=== PATIENT | female | born 2000 | race Caucasian/White ===

== ENCOUNTER 2023-10-07 07:59 | Outpatient (AMB) | payer OTHER, SELFPAY ==
--- NOTE | 2023-10-07 08:12 | A.OFFVIS_ITS ---
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 States pain started on 09/09/23 she fainted and fell downstairs due to low iron, and injured her hand. Pain is worse with wrist movement, wrist rotation and has stiffness.She has tingling in her ring and pinky. She is currently wearing a wrist brace. 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 She currently states s he has improvement in her pain and ROM however she does experiences pain and limited ROM in her wrist which is aggravated with movement. She also c/o tingling in her ring and pinky finger. She is currently wearing a wrist brace. 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 Review of Systems Const All systems reviewed & are unremarkable except as noted in HPI and below Physical Exam Vital Signs: BMI result Body Mass Index 26.6 Const General: cooperative, healthy appearing, comfortable, no acute distress, well developed and alert Orientation/consciousness: patient oriented x3 HEENT Head: Yes normal to inspection, Yes normocephalic and Yes atraumatic Eyes General: appearance normal, both eyes and all related structures Resp Effort & Inspection: normal respiratory effort and able to speak in complete sentences Cardio Rate: regular rate Peripheral pulses: Peripheral pulses 2+ throughout GI Palpation (GI): Soft to palpation Skin Lesions: no lesions Rashes: no rashes Neuro General: patient oriented x3 Extrem Other: Left wrist: Normal to inspection. Tenderness over the dorsal aspect of the hand along the scapholunate region. No pain with compression of the wrist. No DRUJ instability. Numbness and tingling over the ulnar nerve distribution of the left hand. Able to make a full fist and fully extend all fingers. She had mild discomfort with supination and pronation of the wrist. Discomfort along the lateral epicondyle, full rom of the elbow. Results Reviewed Results Reviewed: Xrays were obtained in the office today and personally reviewed by me of the left wrist and elbow are negative for acute fractures or dislocations. Assessment & Plan Assessment & Plan (1) Left wrist tendonitis: Code(s): M77.8 - Other enthesopathies, not elsewhere classified (2) Ulnar neuropathy at elbow: Code(s): G56.20 - Lesion of ulnar nerve, unspecified upper limb Qualifiers: Laterality: left Qualified Code(s): G56.22 - Lesion of ulnar nerve, left upper limb Plan We discussed options which include OT, NSAIDs and injections. The patient will defer on the injection today and proceed with OT and NSAIDs.I also ordered an EMG of the left UE. She will continue with current work restrictions, no physical contact with clients and see me back in 6 weeks for f/u. Orders: Orders NE electromyogram (EMG) Today R20.0 - Anesthesia of skin, R20.2 - Paresthesia of skin NE nerve conduction velocity Today R20.0 - Anesthesia of skin, R20.2 - Paresthesia of skin XR elbow LT min 3V Today M25.522 - Pain in left elbow OT Evaluation and Treatment Today G56.20 - Lesion of ulnar nerve, unspecified upper limb, M77.8 - Other enthesopathies, not elsewhere classified Patient Instructions: Scribed for Savannah Marti PA-C, by Lavon Sprague medical anthropologist, on 10/07/2023 at 8:00 AM EST. I, Savannah Marti PA-C, have personally reviewed and agree with the information entered by the scribe. Coding Level of Care Code New Pt Level 3 (40961) Diagnoses Left wrist tendonitis M77.8 Ulnar neuropathy at elbow of left upper extremity G56.22 Laterality: left
[2023-10-07 08:19] VITALS: BMI 26.6
== END 2023-10-07 09:00 | disposition home or self-care (01) ==
PROVIDERS: Visit Provider Physician Assistant
DX: M77.8 Other enthesopathies, not elsewhere classified (principal); G56.22 Lesion of ulnar nerve, left upper limb; W10.8XXA Fall (on) (from) other stairs and steps, initial encounter
CPT/HCPCS: 99203

== ENCOUNTER 2023-10-07 08:33 | Outpatient (REF) | payer OTHER, SELFPAY ==
--- NOTE | ~2023-10-07 | XR_ITS ---
EXAMINATION: XR ELBOW, LEFT CLINICAL INFORMATION: Pain. COMPARISON: None available. TECHNIQUE: AP, lateral, and oblique views of the left elbow. FINDINGS: The bones and soft tissues are normal. No fracture or joint effusion. Alignment is anatomic. Joint spaces are maintained. XR/XR wrist LT w scaphoid IMPRESSION: Normal left elbow. EXAMINATION: XR WRIST, LEFT CLINICAL INFORMATION: Pain. COMPARISON: None available. TECHNIQUE: PA, lateral, and oblique views of the left wrist are submitted, together with a bilateral scaphoid view. FINDINGS: The bones and soft tissues are normal. No fracture. Alignment is anatomic with normal joint spaces. There is a mild ulnar positive variance noted bilaterally. No erosions or abnormal soft tissue calcifications. IMPRESSION: Normal left wrist.
--- NOTE | ~2023-10-07 | XR_ITS ---
EXAMINATION: XR ELBOW, LEFT CLINICAL INFORMATION: Pain. COMPARISON: None available. TECHNIQUE: AP, lateral, and oblique views of the left elbow. FINDINGS: The bones and soft tissues are normal. No fracture or joint effusion. Alignment is anatomic. Joint spaces are maintained. XR/XR elbow LT min 3V IMPRESSION: Normal left elbow. EXAMINATION: XR WRIST, LEFT CLINICAL INFORMATION: Pain. COMPARISON: None available. TECHNIQUE: PA, lateral, and oblique views of the left wrist are submitted, together with a bilateral scaphoid view. FINDINGS: The bones and soft tissues are normal. No fracture. Alignment is anatomic with normal joint spaces. There is a mild ulnar positive variance noted bilaterally. No erosions or abnormal soft tissue calcifications. IMPRESSION: Normal left wrist.
== END 2023-10-07 08:34 | disposition home or self-care (01) ==
LOC: HO.HOSX 08:33
PROVIDERS: Visit Provider Physician Assistant
DX: M25.522 Pain in left elbow (principal); M25.532 Pain in left wrist; M77.8 Other enthesopathies, not elsewhere classified; G56.22 Lesion of ulnar nerve, left upper limb; R20.0 Anesthesia of skin; R20.2 Paresthesia of skin; Z79.899 Other long term (current) drug therapy
CPT/HCPCS: 73080; 73110; 99202

== ENCOUNTER 2023-10-27 13:15 | Outpatient (AMB) | payer OTHER, SELFPAY ==
--- NOTE | 2023-10-18 08:46 | A.OFFPC_ITS ---
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
[2023-10-27 13:30] VITALS: BP 104/68; PULSE 60; RESP 12; O2SAT 98; BMI 32.8
== END 2023-10-27 14:17 | disposition home or self-care (01) ==
PROVIDERS: Visit Provider Physician Assistant
DX: Z00.00 Encounter for general adult medical examination without abnormal findings (principal); F31.77 Bipolar disorder, in partial remission, most recent episode mixed; D50.0 Iron deficiency anemia secondary to blood loss (chronic); N92.1 Excessive and frequent menstruation with irregular cycle; F41.1 Generalized anxiety disorder; F41.0 Panic disorder [episodic paroxysmal anxiety]; F43.10 Post-traumatic stress disorder, unspecified
CPT/HCPCS: 99385

== ENCOUNTER 2023-11-04 09:39 | Outpatient (REF) | payer OTHER, SELFPAY ==
--- NOTE | 2023-11-04 09:46 | EMG_ITS ---
Chief complaint: Left elbow pain with numbness on 4th and 5th digits, since fall last September 2023 Reason for referral: Evaluate for ulnar neuropathy Referred by: Savannah JORDAN Procedure done: Left upper extremity NCS/EMG Precautions and/or limitations: None The limb temperature was monitored continuously and remained between 32-36 degrees C during the performance of the NCS. Ulnar motor NCS was performed with moderate elbow flexion between 70-90 degrees, with across-elbow distance of 10 cm. Nerve Conduction Studies Anti Sensory Summary Table ?Stim Site NR Onset (ms) Norm Onset (ms) Peak (ms) Norm Peak (ms) O-P Amp (?V) Norm O-P Amp Site1 Site2 Delta-0 (ms) Dist (cm) Sunil (m/s) Norm Sunil (m/s) Left Median Anti Sensory (2nd Digit) Wrist ? 2.3 2.9 <3.6 72.0 >10 Wrist 2nd Digit 2.3 14.0 61 Left Radial Anti Sensory (Thumb) Forearm ? 1.3 2.0 <3.1 30.9 Forearm Thumb 1.3 0.0 Left Ulnar Anti Sensory (5th Digit) Wrist ? 2.4 2.9 <3.7 36.6 >15.0 Wrist 5th Digit 2.4 14.0 58 Motor Summary Table ?Stim Site NR Onset (ms) Norm Onset (ms) O-P Amp (mV) Norm O-P Amp iAmp (mV) Amp (1st) (%) Site1 Site2 Delta-0 (ms) Dist (cm) Sunil (m/s) Norm Sunil (m/s) Left Median Motor (Abd Poll Brev) Wrist ? 2.7 <3.9 12.4 >4.5 14.3 100.0 Elbow Wrist 3.4 20.0 59 >45 Elbow ? 6.1 11.6 13.5 93.5 Left Ulnar Motor (Abd Dig Minimi) Wrist ? 2.3 <3.0 9.0 >5 10.9 100.0 B Elbow Wrist 3.2 18.0 56 >45 B Elbow ? 5.5 8.9 11.0 98.9 A Elbow B Elbow 1.7 10.0 59 >45 A Elbow ? 7.2 7.1 8.0 78.9 Left Ulnar Motor (FDI) Wrist ? 2.8 <3.0 7.9 >5 9.1 100.0 B Elbow Wrist 3.3 19.0 58 >45 B Elbow ? 6.1 7.8 9.1 98.7 A Elbow B Elbow 1.6 10.0 62 >45 A Elbow ? 7.7 1.1 1.3 13.9 EMG ?Side Muscle Nerve Root Ins Act Fibs Psw Amp Dur Poly Recrt Int Pat Comment Left 1stDorInt Ulnar C8-T1 Incr 1+ 1+ Nml Nml 0 Nml Complete Left Biceps Musculocut C5-6 Nml Nml Nml Nml Nml 0 Nml Complete Left Triceps Radial C6-7-8 Nml Nml Nml Nml Nml 0 Nml Complete Left Deltoid Axillary C5-6 Nml Nml Nml Nml Nml 0 Nml Complete Left FlexCarpiUln Ulnar C8,T1 Nml Nml Nml Nml Nml 0 Nml Complete Paraspinal EMG ?Side Muscle Nerve Root Ins Act Fibs Psw Comment Left Cervical Upper Rami Nml Nml Nml Left Cervical Mid Rami Nml Nml Nml Left Cervical Lower Rami Nml Nml Nml FINDINGS: Left ulnar motor nerve, recording ADM, showed normal distal latency, drop in amplitude above the elbow, but normal conduction velocity. Confirmed by retesting ulnar motor nerve, recording FDI, still showing drop in amplitude above the elbow, but normal conduction velocity. All other nerves tested were within normal. Concentric needle EMG was performed in selected muscles of the left upper extremity and cervical paraspinals. Study revealed signs of electric abnormalities as shown in the table below. Left FDI showed increased insertional activity, PSWs and fibrillations. IMPRESSION: 1. This is an abnormal study. 2. There is electrodiagnostic evidence for left ulnar neuropathy at the elbow. 3. There is no electrodiagnostic evidence for median neuropathy, brachial plexopathy, or cervical radiculopathy. Thank you for your kind referral. Lili Lo MD, JEFFREY Board Certified, [place] [employer] and [employer] (ABPMR) Board Certified, [place] Board of Electrodiagnostic Medicine (ABEM) CODIN [id number] [facility]
== END 2023-11-04 09:40 | disposition home or self-care (01) ==
LOC: HO.NEURO 09:39
PROVIDERS: Visit Provider Physician Assistant
DX: R20.0 Anesthesia of skin (principal); R20.2 Paresthesia of skin
CPT/HCPCS: 95886; 95909

== ENCOUNTER → 2023-11-04 09:46 | Outpatient (BNV) | payer OTHER, SELFPAY | PROVIDERS: Visit Provider Physical Medicine & Rehabilitation | DX: G56.22 Lesion of ulnar nerve, left upper limb (principal) | CPT/HCPCS: 95886; 95909 ==

== ENCOUNTER 2023-11-16 14:01 | Outpatient (REF) | payer OTHER, SELFPAY ==
[2023-11-17 11:57] LABS: CT PCR NOT DETECTED (Not Detect.); NG PCR NOT DETECTED (Not Detect.)
[2023-11-17 12:03] LABS: BV Int Neg Control Negative (Negative); BV Int Pos Control Positive (Positive)
== END 2023-11-16 14:02 | disposition home or self-care (01) ==
LOC: HO.LNP 14:01
PROVIDERS: Visit Provider Advanced Practice Midwife
DX: N94.10 Unspecified dyspareunia (principal); F43.10 Post-traumatic stress disorder, unspecified; N92.1 Excessive and frequent menstruation with irregular cycle; D50.0 Iron deficiency anemia secondary to blood loss (chronic); Z80.41 Family history of malignant neoplasm of ovary; Z80.3 Family history of malignant neoplasm of breast; Z97.5 Presence of (intrauterine) contraceptive device; Z86.69 Personal history of other diseases of the nervous system and sense organs
CPT/HCPCS: 0353U; 87480; 87510; 87660; 99202

== ENCOUNTER 2023-11-16 14:01 | Outpatient (AMB) | payer OTHER, SELFPAY ==
[2023-11-16 14:03] VITALS: BP 90/52; BMI 33.6
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
== END 2023-11-16 14:58 | disposition home or self-care (01) ==
PROVIDERS: Visit Provider Advanced Practice Midwife
DX: F43.10 Post-traumatic stress disorder, unspecified (principal); Z80.3 Family history of malignant neoplasm of breast; N92.1 Excessive and frequent menstruation with irregular cycle; Z97.5 Presence of (intrauterine) contraceptive device; Z86.69 Personal history of other diseases of the nervous system and sense organs; Z80.41 Family history of malignant neoplasm of ovary; D50.0 Iron deficiency anemia secondary to blood loss (chronic)
CPT/HCPCS: 99204

== ENCOUNTER 2023-11-17 09:17 | Outpatient (REF) | payer OTHER, SELFPAY ==
[2023-11-17 11:42] LABS: MANUAL DIFF FLAG NO
[2023-11-17 11:47] LABS: Basophils Percent Auto 0.9 % (0-2); Eosinophils Percent Auto 0.7 % (0-4); Hematocrit 42.6 % (37.0-47.0); Hemoglobin 14.2 g/dl (12.0-16.0); Imm Gran Abs Auto 0.02 X10*3/uL (0.00-0.03); Imm Gran Pct Auto 0.5 % (0.0-0.4); Lymphocytes Absolute Auto 0.9 X10*3/uL (1.2-4.9); Lymphocytes Percent Auto 20.6 % (20-40); Mean Corpuscular HGB Conc 33.3 g/dl (31.0-35.0); Mean Corpuscular Hemoglobin 28.3 pg (27.0-33.0); Mean Platelet Volume 10.7 fL (9.4-12.3); Monocytes Absolute Auto 0.4 X10*3/uL (0.1-1.2); Monocytes Percent Auto 8.3 % (2-11); Neutrophils Absolute Auto 2.9 x10*3/uL (2.0-8.3); Platelet Count 182 X10*3/uL (160-400); Red Blood Count 5.01 X10*6/uL (4.20-5.50); White Blood Count 4.2 X10*3/uL (4.8-10.8)
[2023-11-17 12:29] LABS: Alanine Aminotransferase 21 U/L (0-31); Albumin Level 4.7 g/dL (3.5-5.0); Alkaline Phosphatase 40 U/L (39-117); Anion Gap 16 (12-20); Aspartate Amino Transferase 20 U/L (5-31); Bilirubin Total 0.5 mg/dL (0.0-1.0); Blood Urea Nitrogen 15 mg/dL (9-16); Calcium 9.6 mg/dL (8.4-10.2); Carbon Dioxide 21 mmol/L (22-29); Chloride 108 mmol/L (96-108); Cholesterol 166 mg/dL (<200); Estimated Glomerular Filt Rate > 60; Glucose Fasting 84 mg/dL (60-99); HDL Cholesterol 54 mg/dL (>40); Iron 100 mcg/dL (30-160); LDL Cholesterol Calculated 104 mg/dL (<100); Percent Iron Saturation 33 % (15-50); Potassium 4.4 mmol/L (3.3-5.1); Sodium 141 mmol/L (135-145); Total Iron Binding Capacity 306 mcg/dL (228-428); Total Protein 7.7 g/dL (6.5-8.0); Triglycerides 40 mg/dL (<150); Unsaturated Iron Binding 206 ug/dL
[2023-11-17 12:48] LABS: Ferritin 68 ng/mL (10-122)
[2023-11-17 12:54] LABS: Folate 10.6 ng/mL (> or = 4.0); Vitamin B12 392 pg/mL (200-900)
== END 2023-11-17 09:18 | disposition home or self-care (01) ==
LOC: HO.HHCL 09:17
PROVIDERS: Visit Provider Physician Assistant
DX: Z00.00 Encounter for general adult medical examination without abnormal findings (principal); D50.9 Iron deficiency anemia, unspecified; F31.70 Bipolar disorder, currently in remission, most recent episode unspecified; F32.4 Major depressive disorder, single episode, in partial remission; F41.1 Generalized anxiety disorder; F41.0 Panic disorder [episodic paroxysmal anxiety]
CPT/HCPCS: 36415; 80053; 80061; 82607; 82728; 82746; 83540; 84443; 85025

== ENCOUNTER 2023-11-17 15:18 | Outpatient (AMB) | payer OTHER, SELFPAY ==
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
[2023-11-17 15:42] VITALS: BP 128/72; PULSE 72; RESP 16; O2SAT 72; BMI 34.2
== END 2023-11-17 16:13 | disposition home or self-care (01) ==
PROVIDERS: Visit Provider Physician Assistant
DX: N92.1 Excessive and frequent menstruation with irregular cycle (principal); B37.31 Acute candidiasis of vulva and vagina
CPT/HCPCS: 99213; G2211

== ENCOUNTER 2023-11-18 08:30 | Outpatient (AMB) | payer OTHER, SELFPAY ==
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
== END 2023-11-18 09:11 | disposition home or self-care (01) ==
PROVIDERS: Visit Provider Physician Assistant
DX: G56.22 Lesion of ulnar nerve, left upper limb (principal)
CPT/HCPCS: 99214

== ENCOUNTER → 2023-11-18 08:30 | Outpatient (BNVA) | payer OTHER, SELFPAY | PROVIDERS: Visit Provider Physician Assistant | DX: G56.22 Lesion of ulnar nerve, left upper limb (principal) | CPT/HCPCS: 99212 ==

== ENCOUNTER 2023-12-15 12:24 | Outpatient (AMB) | payer OTHER, SELFPAY ==
[2023-12-15 12:50] VITALS: BP 130/70; PULSE 77; TEMP 36.6; O2SAT 97; BMI 35.2
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
== END 2023-12-15 13:20 | disposition home or self-care (01) ==
PROVIDERS: PCP Physician Assistant; Visit Provider Nurse Practitioner Family
DX: G56.22 Lesion of ulnar nerve, left upper limb (principal)
CPT/HCPCS: 99213

== ENCOUNTER 2023-12-28 08:58 | Outpatient (AMB) | payer OTHER, SELFPAY ==
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
[2023-12-28 09:01] VITALS: BMI 31.8
== END 2023-12-28 09:36 | disposition home or self-care (01) ==
PROVIDERS: Visit Provider Orthopaedic Surgery
DX: G56.22 Lesion of ulnar nerve, left upper limb (principal); D50.0 Iron deficiency anemia secondary to blood loss (chronic); F31.77 Bipolar disorder, in partial remission, most recent episode mixed; F41.1 Generalized anxiety disorder; F41.0 Panic disorder [episodic paroxysmal anxiety]
CPT/HCPCS: 99204

== ENCOUNTER → 2023-12-28 08:58 | Outpatient (BNVA) | payer OTHER, SELFPAY | PROVIDERS: Visit Provider Orthopaedic Surgery | DX: G56.22 Lesion of ulnar nerve, left upper limb (principal); D50.0 Iron deficiency anemia secondary to blood loss (chronic); F31.77 Bipolar disorder, in partial remission, most recent episode mixed; F41.1 Generalized anxiety disorder; F41.0 Panic disorder [episodic paroxysmal anxiety] | CPT/HCPCS: 99202 ==

== ENCOUNTER 2024-02-08 11:18 | Outpatient (AMB) | payer OTHER, SELFPAY ==
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
== END 2024-02-08 11:54 | disposition home or self-care (01) ==
PROVIDERS: Visit Provider Orthopaedic Surgery
DX: G56.22 Lesion of ulnar nerve, left upper limb (principal); D50.0 Iron deficiency anemia secondary to blood loss (chronic); F31.77 Bipolar disorder, in partial remission, most recent episode mixed; F41.1 Generalized anxiety disorder; F41.0 Panic disorder [episodic paroxysmal anxiety]
CPT/HCPCS: 99024

== ENCOUNTER → 2024-02-08 11:18 | Outpatient (BNVA) | payer OTHER, SELFPAY | PROVIDERS: Visit Provider Orthopaedic Surgery | DX: G56.22 Lesion of ulnar nerve, left upper limb (principal); D50.0 Iron deficiency anemia secondary to blood loss (chronic); F31.77 Bipolar disorder, in partial remission, most recent episode mixed; F41.1 Generalized anxiety disorder; F41.0 Panic disorder [episodic paroxysmal anxiety] | CPT/HCPCS: 99212 ==

== ENCOUNTER 2024-02-13 06:00 | Day surgery (SDC) | payer OTHER, SELFPAY ==
[2024-02-09 14:20] VITALS: BMI 34.2
[2024-02-13] VITALS (7 sets, daily range): BP systolic 120–140; BP diastolic 59–78; PULSE 79–126; RESP 16–20; TEMP 36.1–37.2; O2SAT 94–98
[2024-02-13 06:35] LABS: UPreg QC Valid YES; Urine Pregnancy NEGATIVE (NEGATIVE)
[2024-02-13] MEDS: Lactated Ringers 1,000 ML 50 ML IVCONT (06:37)
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
--- NOTE | 2024-02-13 07:36 | P.OP_ITS ---
Operative Note Operative Note Date of Service: 02/13/24 Narrative: Operative Note Narrative: Preop diagnosis: 1. Left Cubital tunnel syndrome Postop diagnosis: Same Procedure: 1. Left Cubital Tunnel Release Surgeon: Rosie Quinn MD Vocational Nursing Instructor: None Anesthesia: General Anesthesia Findings: Thickening and fibrosis about the ulnar nerve at the cubital tunnel, with an hourglass deformity seen in the ulnar nerve within the cubital tunnel. Implants: none Tourniquet time: 26 minutes EBL: 5.0 ml Specimen: none Drains: None Complications: None Disposition: Brought to the recovery room in stable condition Plan: Follow-up in 10-14 days for wound check, and suture removal Indications: The patient is 23 years old with left cubital tunnel syndrome . The risks and benefits of operative treatment, including but not limited to risk of damage to blood vessels, nerves, tendons, infection, recurrence, persistent pain or numbness, incomplete resolution of preoperative symptoms, or need for further surgery were discussed with the patient and they wished to proceed with surgery. Procedure: Once consent was obtained patient was brought back to the operating suite and placed in the operating table in a supine position. Perioperative a ntibiotics and anesthesia was administered by the anesthesia team. The limb was prepped and draped in a standard surgical fashion, and a sterile tourniquet applied to the proximal aspect of the left upper extremity. The limb was elevated exsanguinated with Esmarch bandage and the tourniquet inflated to 250 mm of mercury for a total tourniquet time of 26 minutes. A 6 cm gently curved but longitudinally oriented incision was made centered over the cubital tunnel of the left upper extremity. Incision was made through the skin to the subcutaneous tissues using a # 15 Blade. I then dissected down to the level of the medial epicondyle and the cubital tunnel using tenotomy scissors. Care was taken to protect the medial antebrachial cutaneous nerve. The ulnar nerve was identified just posterior to the medial intermuscular septum. The ulnar nerve was released in a proximal to distal direction using tenotomy in iris scissors while directly visualizing and protecting the ulnar nerve. Thickening and fibrosis was appreciated about the ulnar nerve as it passed through the cubital tunnel. The ulnar nerve was assessed as I passed the elbow through full flexion and extension and was found to remain stable within its groove. At this point the tourniquet was deflated and hemostasis obtained with a brief period of local pressure and bipolar electrocautery. The wound was copiously irrigated with normal saline. The subcutaneous layer was closed with 4-0 Vicryl suture, and the skin edges were reapproximated with a running 4-0 Monocryl subcuticular closure. Steri-Strips and Mastisol were applied.. The wound was infiltrated with some 0.25% plain Marcaine for postop pain control and sterile dressings and a posterior splint was applied. The patient appears to have tolerated the procedure well and with no complications. All digits were well vascularized at the conclusion of the case.
--- NOTE | 2024-02-13 07:36 | MHC.SHP ---
Pre-Procedural Eval Section A - 24 Hr Update-Section A only Date of Service: 02/13/24 The patient is an INPATIENT: No Changes since office visit: No Cold of Flu in the past 2 weeks, No New Medical Problems, No Changes in Medication and No Patient answered all questions The patient has been examined within 24 hours of the surgical procedure. The History & Physical has been completed within 30 days and I have reviewed it.: Yes Section B - Complete if H&P > 30 days Chief Complaint: Lesion of ulnar nerve, left upper limb Allergies: Allergies Allergy/AdvReac Type Severity Reaction Status Date / Time amoxicillin Allergy Intermediate Diarrhea Verified 02/08/24 11:42 Plan I have reviewed the history and physical and performed a pertinent physical examination on my patient. No changes have occurred unless specified. Time Spent With Patient Time: Total time managing care of this patient today ____ minutes.
== END 2024-02-13 10:37 | disposition home or self-care (01) ==
PROVIDERS: Anesthesiology; PCP Physician Assistant; Visit Provider Orthopaedic Surgery
PROC: (CPT 64718; principal; 2024-02-13 07:30)
DX: G56.22 Lesion of ulnar nerve, left upper limb (principal); R20.0 Anesthesia of skin; D50.9 Iron deficiency anemia, unspecified; F31.77 Bipolar disorder, in partial remission, most recent episode mixed; F41.1 Generalized anxiety disorder; F41.0 Panic disorder [episodic paroxysmal anxiety]; F43.10 Post-traumatic stress disorder, unspecified; Z62.810 Personal history of physical and sexual abuse in childhood; Z79.899 Other long term (current) drug therapy; Z88.1 Allergy status to other antibiotic agents; Z80.3 Family history of malignant neoplasm of breast; Z80.41 Family history of malignant neoplasm of ovary
CPT/HCPCS: 64718; 81025; J0131; J0690; J1100; J1885; J2250; J2371; J2405; J2704; J3010

== ENCOUNTER → 2024-02-13 06:00 | Outpatient (BNV) | payer OTHER, SELFPAY | PROVIDERS: PCP Physician Assistant; Visit Provider Orthopaedic Surgery | DX: G56.22 Lesion of ulnar nerve, left upper limb (principal) | CPT/HCPCS: 64718 ==

== ENCOUNTER 2024-02-28 12:24 | Outpatient (AMB) | payer OTHER, SELFPAY ==
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
== END 2024-02-28 13:41 | disposition home or self-care (01) ==
PROVIDERS: Visit Provider Orthopaedic Surgery
DX: G56.22 Lesion of ulnar nerve, left upper limb (principal); D50.0 Iron deficiency anemia secondary to blood loss (chronic); F31.77 Bipolar disorder, in partial remission, most recent episode mixed; F41.1 Generalized anxiety disorder; F41.0 Panic disorder [episodic paroxysmal anxiety]
CPT/HCPCS: 99024

== ENCOUNTER → 2024-02-28 12:24 | Outpatient (BNVA) | payer OTHER, SELFPAY | PROVIDERS: Visit Provider Orthopaedic Surgery | DX: G56.22 Lesion of ulnar nerve, left upper limb (principal); D50.0 Iron deficiency anemia secondary to blood loss (chronic); F31.77 Bipolar disorder, in partial remission, most recent episode mixed; F41.1 Generalized anxiety disorder; F41.0 Panic disorder [episodic paroxysmal anxiety] | CPT/HCPCS: 99212 ==

== ENCOUNTER 2024-03-01 14:51 | Outpatient (AMB) | payer OTHER, SELFPAY ==
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
[2024-03-01 15:01] VITALS: BP 106/60; PULSE 86; TEMP 36.8; O2SAT 98; BMI 28.0
== END 2024-03-01 15:24 | disposition home or self-care (01) ==
PROVIDERS: PCP Physician Assistant; Visit Provider Physician Assistant
DX: L20.89 Other atopic dermatitis (principal)
CPT/HCPCS: 99213

== ENCOUNTER 2024-05-21 10:36 | Outpatient (AMB) | payer OTHER, SELFPAY ==
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
[2024-05-21 10:50] VITALS: BP 100/64; PULSE 78; RESP 16; TEMP 37; O2SAT 95; BMI 36.3
== END 2024-05-21 11:04 | disposition home or self-care (01) ==
PROVIDERS: PCP Physician Assistant; Visit Provider Physician Assistant
DX: S06.0X0A Concussion without loss of consciousness, initial encounter (principal); W22.8XXA Striking against or struck by other objects, initial encounter; Z04.2 Encounter for examination and observation following work accident

== ENCOUNTER → 2024-05-21 10:36 | Outpatient (BNVA) | payer OTHER, SELFPAY | PROVIDERS: PCP Physician Assistant; Visit Provider Physician Assistant | DX: F07.81 Postconcussional syndrome (principal) | CPT/HCPCS: 99212 ==

== ENCOUNTER 2024-05-30 11:09 | Outpatient (AMB) | payer OTHER, SELFPAY ==
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
[2024-05-30 11:19] VITALS: BP 108/58; PULSE 84; O2SAT 99; BMI 36.4
== END 2024-05-30 14:00 | disposition home or self-care (01) ==
LOC: HO.HMCFM 11:09
PROVIDERS: PCP Physician Assistant; Visit Provider Physician Assistant
DX: S06.0XAA Concussion with loss of consciousness status unknown, initial encounter (principal); Z23 Encounter for immunization

== ENCOUNTER → 2024-05-30 11:09 | Outpatient (BNVA) | payer OTHER, SELFPAY | PROVIDERS: PCP Physician Assistant; Visit Provider Physician Assistant | DX: Z23 Encounter for immunization (principal); F07.81 Postconcussional syndrome | CPT/HCPCS: 90471; 90656; 99212 ==

== ENCOUNTER 2024-07-30 15:32 | Outpatient (REF) | payer OTHER, SELFPAY ==
--- OUTSIDE RECORDS SUMMARY | 2024-07-30 18:47 | XMS_ITS | Data Portability ---
Author Organization NIKKI Ndiaye s, [address] Address [address] [place] [address] Assessment No assessment recorded. Plan of Treatment Reminders Order Date Submit Date Provider Last Modified By Organization Details Last Modified Time Details Appointments None recorded. Lab rapid SARS CoV 2 Ag, QL IA, respiratory specimen 2022 023 [email or web address] 5 [facility], [address] [place] [address], [phone], 3 16:27:48 rapid flu (A+B) 2022 023 [email or web address] 5 _[facility], [address] [place] [address], [phone], 3 16:27:48 rapid strep group A, throat 2022 023 [email or web address] 5 _[facility], [address] [place] [address], [phone], 3 16:27:48 streptococc us group A, culture, throat 2022 023 MONTROSE [facility], [address] [place] [address], [place], [address], 3 08:07:54 Referral None recorded. Procedures None recorded. Surgeries None recorded. Imaging XR, hand, 3 or more view 2022 023 CITLALLI [facility], [address] [place] [address]., [place], [address], 16:31:35 Medication Orders acetaminoph en 325 mg tablet 2022 023 [email or web address] 1 Not available 14:24:36 amoxicillin 500 mg capsule 2022 023 [email or web address] 1 [id number], [address] [facility], [place], [address], 14:24:39 Patient TargetsNo targets recorded. Patient Instructions Encounter Date Encounter Id Patient Instructions Last Modified By Organization Details Last Modified Time 11/03/2022 [id number] cough: care instructions [email or web address] Not available 11/03/2022 16:28:31 sore throat: car e instructions [email or web address] Not available 11/03/2022 16:27:48 strep throat: care instructions Not available 11/03/2022 16:28:31 Rest. Drink plenty of fluids. Gargle with warm salty water several times daily. Take the antibiotic as prescribed. Obtain a new toothbrush in 2 days. See printed instructions and work note. You will be contacted when your throat culture report returns. Follow-up with your doctor if no improvement in a few days. Seek Emergency Medical evaluation for any worsening symptoms, particularly for any worsening pain, trouble swallowing or breathing, intractable vomiting, blood in vomit or stool. [email or web address] Not available 11/03/2022 16:32:30 Reason for Referral None Reported. Results Created Date Observation Date Name Description Value Unit Range Abnormal Flag Note LastModifiedBy Organization Detail LastModifiedTime 11/04/1911/06/2022 BETA STREP GP A CULTU RE beta strep gp A culture NEGATI VE Refer ence Range : Negat hal Not Available [facility] ([facility]) [address] [facility], [place], [address], 11/06/2022 08:07:54 11/04/1911/03/2022 rapid SARS CoV 2 Ag, QL IA, respi rator y speci men Unknown Analyte Normal =Negat hal Not Available [facility] [place], [address], 11/03/2022 15:56:12 11/04/19 23 11/03/2022 rapid SARS CoV 2 Ag, QL IA, respi rator y speci men Unknown Analyte negati ve Not Available [address] [place] [address], [place], [address], 11/03/2022 15:56:12 11/04/19 23 11/03/2022 rapid flu (A+B) Unknown Analyte Normal = Negati ve Not Available [address] [place] [address], [place], [address], 11/03/2022 15:56:13 11/04/19 23 11/03/2022 rapid flu (A+B) Unknown Analyte Normal = Negati ve Not Available [address] [place] [address], [address], 11/03/2022 15:56:13 11/04/19 23 11/03/2022 rapid flu (A+B) Unknown Analyte negati ve Not Available [address] [place] [address], [place], [address], 11/03/2022 15:56:13 11/04/19 23 11/03/2022 rapid flu (A+B) Unknown Analyte negati ve Not Available [address] [place] [address], [place], [address], 11/03/2022 15:56:13 11/04/19 23 11/03/2022 rapid strep group A, throa t Unknown Analyte Normal = Negati ve Not Available [address] [place] [address], [place], [address], 11/03/2022 15:40:46 11/04/19 23 11/03/2022 rapid strep group A, throa t Unknown Analyte negati ve Not Available [address] [facility], [place], [address], 11/03/2022 15:40:46 01/05/20 23 01/04/2023 XR, hand, 3 or more view No observ ation record ed. [email or web address] [facility] [address] [place], [address], 01/04/2023 17:26:47 Result Notes None recorded. Problems Name Problem SNOMED Code Status Onset Date Resolution Date Notes Provider Name and Address Organization Details Recorded Time Anxiety 31332243 Active 023 Trinamonster avalos, [place] - [facility] 3 15:19:20 Depressive disorder 59182013 Active 023 Trin[place]ster avalos, PA - [facility] 3 15:19:25 Problem Notes None recorded. Procedures Surgical History None recorded. Imaging Results Imaging Date Name Status LastModified by Organiz ation Details LastModified Time 01/04/2023 XR, hand, 3 or more view completed [email or web address] [address] [place], [address], 01/04/2023 17:26:47 Procedure Notes None recorded. Medical Equipment None Reported. Allergies Allergen ID Allergen Name Allergen Category Reaction Reaction Severity Criticality Documentation Date Start Date Code Code System Note Provider Name and Address Organization Details Recorded Time 928299 amoxicill in medicatio n Not available Not available Not available 01/04/2023 723 RxNorm FAIZA avalos, PA - [facility] 3 14:24:02 Medications Name Sig Start Date Stop Date Status Note LastModified by Organization Details LastModified Time amoxicillin 500 mg capsule TAKE 1 CAPSULE BY MOUTH TWICE A DAY FOR 10 DAYS 01/04 completed Not Available Not Available Not Available acetaminoph en 325 mg tablet Take 3 tablets by oral route. 01/04 completed Not Available Not Available Not Available trazodone 50 mg tablet TAKE 1 TO 2 TABLETS BY MOUTH AT BEDTIME active Not Available Not Available No t Available fluconazole 150 mg tablet TAKE 1 TABLET BY MOUTH ONCE 01/04 completed Not Available Not Available Not Available prednisone 20 mg tablet TAKE 3 TABLETS BY MOUTH EVERY DAY FOR 3 DAYS 01/04 completed Not Available Not Available Not Available Vitamin D3 10 mcg (400 unit) tablet TAKE 1 TABLET BY MOUTH EVERY DAY active Not Available Not Available No t Available paroxetine 20 mg tablet TAKE 1 TABLET BY MOUTH EVERY DAY IN THE EVENING active Not Available Not Available No t Available hydroxyzine HCl 25 mg tablet TAKE 1 TABLET BY MOUTH 4 TIMES A DAY NEEDED FOR ANXIETY active Not Available Not Available No t Available epinephrine 0.3 mg/0.3 mL injection, auto-inject or INJECT 1 AUTO-INJE CTOR NEEDED active Not Available Not Available No t Available lamotrigine 100 mg tablet TAKE 1 AND 1/2 TABLET BY MOUTH EVERY DAY active Not Available Not Available No t Available hydroxyzine HCl 01/04 completed Not Available Not Available Not Available lamotrigine 01/04 completed Not Available Not Available Not Available trazodone 01/04 completed Not Available Not Available Not Available albuterol 90 mcg-budeson margie 80 mcg/actuati on HFA aerosol inhaler Inhale by inhalatio n route. active Not Available Not Available No t Available Vitals Date Recorded Body height Provider Name an d Address Organization Details Last Updated DateTime 11/03/2022 162.56 cm Trina Manoj PA - [facility] 0 11/03/2022 15:18:20 Date Recorded Body mass index (BMI) Body weight Provider Name and Address Organization Details Last Updated DateTime 11/03/2022 24.9 kg/m2 73972.89 g Trina Manoj PA - [facility] 11/03/2022 15:18:23 Date Recorded Oxygen saturation Oxygen saturation in Arterial blood by Pulse oximetry Provider Name and Address Organization Details Last Updated DateTime 11/03/2022 100 % 100 % Trina Alhambra PA - [facility] 11/03/2022 15:20:56 Date Recorded Pain severity - 0-10 verbal numeric rating [Score] - Reported Provider Name and Address Organization Details Last Updated DateTime 11/03/2022 10 Trina Manoj PA - [facility] 0 11/03/2022 15:21:19 Date Recorded Heart rate Provider Name an d Address Organization Details Last Updated DateTime 11/03/2022 91 /min Trina Manoj PA - [facility] 0 11/03/2022 15:21:06 Date Recorded Respiratory rate Provider Name a nd Address Organization Details Last Updated DateTime 11/03/2022 20 /min Trina Manoj PA - [facility] 0 11/03/2022 15:21:09 Date Recorded Body temperature Provider Name a nd Address Organization Details Last Updated DateTime 11/03/2022 99.5 [degF] Trina Alhambra PA - [facility] 11/03/2022 15:21:16 Date Recorded Body height Provider Name an d Address Organization Details Last Updated DateTime 01/04/2023 162.56 cm FAIZA MONTOYA PA - [facility] 01/04/2023 14:23:47 Date Recorded Body mass index (BMI) Body weight Provider Name and Address Organization Details Last Updated DateTime 01/04/2023 24.9 kg/m2 88244.89 g FAIZA MONTOYA [facility] - [facility] 01/04/2023 14:23:51 Date Recorded Body temperature Provider Name a nd Address Organization Details Last Updated DateTime 01/04/2023 97.7 [degF] FAIZA MONTOYA PA - [facility] 01/04/2023 14:26:24 Date Recorded Oxygen saturation Oxygen saturation in Arterial blood by Pulse oximetry Provider Name and Address Organization Details Last Updated DateTime 01/04/2023 98 % 98 % FAIZA MONTOYA PA - [facility] 01/04/2023 14:26:44 Date Recorded Heart rate Provider Name an d Address Organization Details Last Updated DateTime 01/04/2023 94 /min FAIZA MONTOYA PA - [facility] 01/04/2023 14:26:46 Date Recorded Respiratory rate Provider Name a nd Address Organization Details Last Updated DateTime 01/04/2023 18 /min FAIZA MONTOYA PA - [facility] 01/04/2023 14:26:48 Date Recorded Systolic blood pressure Diastolic blood pressure Provider Name and Address Organization Details Last Updated DateTime 11/03/2022 137 mm[Hg] 88 mm[Hg] Trina Aranda PA - [facility] 11/03/2022 15:20:53 Date Recorded Systolic blood pressure Diastolic blood pressure Provider Name and Address Organization Details Last Updated DateTime 01/04/2023 121 mm[Hg] 75 mm[Hg] FAIZA MONTOYA PA - [facility] 01/04/2023 14:26:43 Social History Question Answer Notes LastModified by Organizat ion Details LastModified Time Tobacco Smoking Status Never Smoker Trina avalos, PA - [facility] 11/03/2022 15:19:34 What Is Your Level Of Alcohol Consumption? 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 No Information not available 11/03/2022 Do You Use Any Illicit Or Recreational Drugs? No Information not available 11/03/2022 Have You Recently Traveled Abroad? No Information not available 11/03/2022 Do You Or Have You Ever Used Any Other Forms Of Tobacco Or Nicotine? No Information not available 11/03/2022 Sex: Unknown Functional Status None recorded. Mental Status None recorded. Family History Relationship Description Onset Age of this Age Resolved Age Notes LastModified by Organization Details LastModified Time Father No current problems or disability Not available 11/03 15:19:27 Mother No current problems or disability Not available 11/03 15:19:27 Medical History No medical history recorded. Gynecological HistoryNo gynecological history recorded. Obstetrics History GPAL:G 0 P 0 0 0 0 Immunizations Vaccine Type Date Status Note Provider Nam e and Address Organization Details Recorded Time HPV9 6 completed Trina avalos, PA - [facility] 11/03/2022 15:17:38 Influenza, MDCK, quadrivalent, PF 1 completed Trin[place]ster avalos, PA - [facility] 11/03/2022 15:17:38 COVID-19, mRNA, LNP-S, PF, 30 mcg/0.3 mL dose 1 completed Trina Manoj null, PA - [facility] 11/03/2022 15:17:39 COVID-19, mRNA, LNP-S, PF, 30 mcg/0.3 mL dose 1 completed Trina Alhambra null, PA - [facility] 11/03/2022 15:17:39 Hep A, ped/adol, 2 dose 7 completed Trina Alhambra null, PA - [facility] 11/03/2022 15:17:39 Hep A, ped/adol, 2 dose 8 completed Trina Manoj null, PA - [facility] 11/03/2022 15:17:39 meningococcal MCV4P 7 completed Trina Alhambra null, PA - [facility] 11/03/2022 15:17:39 Influenza, split virus, quadrivalent, PF 0 completed Trina Alhambra null, PA - [facility] 11/03/2022 15:17:39 Influenza, split virus, quadrivalent, PF 8 completed Trina Manoj null, PA - [facility] 11/03/2022 15:17:39 Influenza, split virus, quadrivalent, PF 9 completed Trina Manoj null, PA - [facility] 11/03/2022 15:17:39 Influenza, split virus, quadrivalent, PF 6 completed Trina Manoj null, PA - [facility] 11/03/2022 15:17:39 Past Encounters Encounter ID Performer Location Encounter Start Date Encounter Closed Date Diagnosis/Indication Diagnosis SNOMED-CT Code Diagnosis ICD10 Code Diagnosis [place] [id number] [place] [address] [address] 11/03/2022 10:29:21 11/03/2022 16:41:23 Acute pharyngitis 757537405 J02.9 Cough 23921268 R05.9 [id number] Ronnie Morgan MD [address] [place] [address] 01/04/2023 13:12:09 01/04/2023 15:37:03 Contusion of left hand [id number] 7819809 S60.222A No fractureYo ur x-ray will be reviewed by a radiologis t. You will be notified of any discrepanc ies between findings discussed at your visit today and the radiology interpreta tion.Rest, Ice and elevate Health Concerns Section Related Observation LastModified by Organization Detai ls LastModified Time None Recorded Concern Status LastModified by Organization Details LastModified Time None Recorded Advance Directives Directive None Recorded Payers Encounter Date Sequence Insurance Name Policy Number Policy Bynum Covered Member ID Bynum Member ID Guarantor Name 11/03/2022 1 [facility] HEALTH NET PLAN (MEDICAID HMO) [place]O Samreen Mccabe [id number] Samreen Mccabe 01/04/2023 AMMIR Mccabe Notes Date Note Type Note Provider Name and Address Organization Details Recorded Time 3 text/html Sore throatReported bypatient.Source of patient informationInformation obtained from patient; Patient arrived at Urgent Care ambulatory Location:throat Severity:moderate Quality:hurts to swallow Onset/Timin days Associated Symptoms:no shortness of breath; no wheezing; no sinus pain;sore throat;weakness;fever;coug juliano;nausea;abdominal pain Context:no sick contacts; non-smoker Modifying Factors:OTC medication no relief*Notes:22 year old female presenting for evaluation of fever, chills, sore throat, frontal headache, occasionally productive cough, epigastric pain with nausea and some vomiting and body aches getting worse for the past 2 days. No rash or stiff neck. No swollen glands or ear pain. No chest pain or shortness of breath. No blood in vomit or stool. No diarrhea. No sick contacts. She took ibuprofen early this morning without improvement. Sharmila Bellamy MD [address] [place], [address], [place] - [facility] 11/03/2022 16:34:02 3 text/html Wrist / Hand InjuryReported bypatient.Location:left Associated Symptoms:swelling;ecchymos is Severity:moderate Context:crush Aggravating Factors:lifting; carrying; gripping; ROM Previous InjuryNo prior injury to affected body part Ronnie Morgan MD [address] [facility] [place], [address], [place] - [facility] 01/04/2023 17:26:04 OBGyn Episode No OBEpisode recorded.
--- OUTSIDE RECORDS SUMMARY | 2024-07-30 18:47 | XMS_ITS ---
[facility] Name [facility] Organization Unknown History of Medication Use Medication Directions Dispensed Refills Start Date End Date Stat us NexplanonTakeNo date recordedNo form recordedNo frequency recordedNo route recordedNo set duration recordedNo set duration amount recordedactiveNo dosage strength recordedNo dosage strength units of measure recorded 09/11/2023 active hydrOXYzine HCLTakeN o date recordedNo form recordedNo frequency recordedNo route recordedNo set duration recordedNo set duration amount recordedactiveNo dosage strength recordedNo dosage strength units of measure recorded 09/11/2023 active LaMICtalTakeNo date recordedNo form recordedNo frequency recordedNo route recordedNo set duration recordedNo set duration amount recordedactiveNo dosage strength recordedNo dosage strength units of measure recorded 09/11/2023 active traZODoneTakeNo date recordedNo form recordedNo frequency recordedNo route recordedNo set duration recordedNo set duration amount recordedactiveNo dosage strength recordedNo dosage strength units of measure recorded 09/11/2023 active albuterol sulfateTak Sam date recordedNo form recordedNo frequency recordedNo route recordedNo set duration recordedNo set duration amount recordedactiveNo dosage strength recordedNo dosage strength units of measure recorded 09/11/2023 active Problems Problem Status Onset Date Problem Type Date of Resoluti on Source Pain in left wrist active 2023-09-09 [facility]Act [facility] Depression active ProblemAct [facility] Unspecified sprain of left wrist, initial encounter active 2023-09-09 [facility]Act [facility] Sleep disorder, unspecified active ProblemAct [facility] Anxiety disorder, unspecified active ProblemAct [facility]
[2024-07-31 07:11] LABS: HBsAGNum1 0.36 S/CO (0.00-0.99); Hepatitis B Surface Antigen Negative (Negative)
[2024-08-02 17:54] LABS: TS Negative Control Passed; TS Panel A 0; TS Panel B 0; TS Positive Control Passed; TSpotTB Negative (Negative)
== END 2024-07-30 15:33 | disposition home or self-care (01) ==
LOC: HO.WFDLDS 15:32
PROVIDERS: Visit Provider Physician Assistant
DX: Z28.39 Other underimmunization status (principal); Z11.1 Encounter for screening for respiratory tuberculosis
CPT/HCPCS: 36415; 86481; 87340

== ENCOUNTER 2024-09-17 12:31 | Outpatient (REF) | payer OTHER, SELFPAY ==
--- NOTE | ~2024-09-17 | XR_ITS ---
EXAMINATION: XR FOOT, LEFT CLINICAL INFORMATION: S99.922A - Unspecified injury of left foot, initial encounter ; patient dropped a weight on to left foot. COMPARISON: None available. TECHNIQUE: AP, lateral, and oblique views of the left foot. FINDINGS: No fracture, dislocation, or suspicious bone lesion. Normal bone mineralization. Normal alignment. Joint spaces are preserved. No significant arthropathy. Normal plantar arch. Mild dorsal soft tissue swelling of the forefoot. XR/XR foot LT min 3V IMPRESSION: No acute bony abnormalities left foot. Electronically signed by: Justice Pérez MD 09/17/2024 02:04 PM EDT
--- OUTSIDE RECORDS SUMMARY | 2024-09-17 15:21 | XMS_ITS | Data Portability ---
Author Organization [facility], [facility] Address [address] [place] [address] Assessment No assessment recorded. Plan of Treatment Reminders Order Date Submit Date Provider Last Modified By Organization Details Last Modified Time Details Appointments None recorded. Lab rapid SARS CoV 2 Ag, QL IA, respiratory specimen 2022 023 [email or web address] 5 [facility], [address] [place] [address], [phone], 3 16:27:48 rapid flu (A+B) 2022 023 [email or web address] 5 _[facility], [address] [place] [address], [phone], 3 16:27:48 rapid strep group A, throat 2022 023 [email or web address] 5 _[facility], [address] [place] [address], [address], 3 16:27:48 streptococc us group A, culture, throat 2022 023 RICHARDTON [facility], [address] [place] [address], [place], [address], 3 08:07:54 Referral None recorded. Procedures None recorded. Surgeries None recorded. Imaging XR, hand, 3 or more view 2022 023 RICHARDTON [email or web address], [address] [place] [address]., [place], [address], 16:31:35 Medication Orders acetaminoph en 325 mg tablet 2022 023 [email or web address] 1 Not available 14:24:36 amoxicillin 500 mg capsule 2022 023 [email or web address] 1 [id number], [address] [facility], [place], [address], 14:24:39 Patient TargetsNo targets recorded. Patient Instructions Encounter Date Encounter Id Patient Instructions Last Modified By Organization Details Last Modified Time 11/03/2022 [id number] cough: care instructions [email or web address] Not available 11/03/2022 16:28:31 sore throat: car e instructions [email or web address] Not available 11/03/2022 16:27:48 strep throat: care instructions [email or web address] Not available 11/03/2022 16:28:31 Rest. Drink plenty [...] intractable vomiting, blood in vomit or stool. [email or web address] Not available 11/03/2022 16:32:30 Reason for Referral None Reported. Results Created Date Observation Date Name Description Value Unit Range Abnormal Flag Note LastModifiedBy Organization Detail LastModifiedTime 11/04/1911/06/2022 BETA STREP GP A CULTU RE beta strep gp A culture NEGATI VE Refer ence Range : Negat hal Not Available [facility] ([facility]) [address] [facility], [place], [address], 11/06/2022 08:07:54 11/04/1911/03/2022 rapid SARS CoV 2 Ag, QL IA, respi rator y speci men Unknown Analyte Normal =Negat hal Not Available [facility] [place], [address], 11/03/2022 15:56:12 11/04/19 23 11/03/2022 rapid SARS CoV 2 Ag, QL IA, respi rator y speci men Unknown Analyte negati ve Not Available [address] [place] [address], [place], [address], 11/03/2022 15:56:12 11/04/19 23 11/03/2022 rapid flu (A+B) Unknown Analyte Normal = Negati ve Not Available [address] [place] [address], [place], [address], 11/03/2022 15:56:13 11/04/19 23 11/03/2022 rapid flu (A+B) Unknown Analyte Normal = Negati ve Not Available [address] [place] [address], [address], 11/03/2022 15:56:13 11/04/19 23 11/03/2022 rapid flu (A+B) Unknown Analyte negati ve Not Available [address] [place] [address], [place], [address], 11/03/2022 15:56:13 11/04/19 23 11/03/2022 rapid flu (A+B) Unknown Analyte negati ve Not Available [address] [place] [address], [place], [address], 11/03/2022 15:56:13 11/04/19 23 11/03/2022 rapid strep group A, throa t Unknown Analyte Normal = Negati ve Not Available [address] [place] [address], [place], [address], 11/03/2022 15:40:46 11/04/19 23 11/03/2022 rapid strep group A, throa t Unknown Analyte negati ve Not Available [address] [facility], [place], [address], 11/03/2022 15:40:46 01/05/20 23 01/04/2023 XR, hand, 3 or more view No observ ation record ed. [email or web address] [address] [place], [address], 01/04/2023 17:26:47 Result Notes None recorded. Problems Name Problem SNOMED Code Status Onset Date Resolution Date Notes Provider Name and Address Organization Details Recorded Time Anxiety 34149217 Active 023 [place] avalos, [place] - [facility] 3 15:19:20 Depressive disorder 12904064 Active 023 [place] avalos, [place] - [facility] 3 15:19:25 Problem Notes None recorded. Procedures Surgical History None recorded. Imaging Results Imaging Date Name Status LastModified by Organiz ation Details LastModified Time 01/04/2023 XR, hand, 3 or more view completed [email or web address] [address] [place], [address], 01/04/2023 17:26:47 Procedure Notes None recorded. Medical Equipment None Reported. Allergies Allergen ID Allergen Name Allergen Category Reaction Reaction Severity Criticality Documentation Date Start Date Code Code System Note Provider Name and Address Organization Details Recorded Time 800516 amoxicill in medicatio n Not available Not [...] t Available Vitals Date Recorded Body height Body mass index (BMI) Body weight Oxygen saturation Oxygen saturation in Arterial blood by Pulse oximetry Pain severity - 0-10 verbal numeric rating [Score] - Reported Heart rate Respiratory rate Body temperature Systolic blood pressure Diastolic blood pressure Provider Name and Address Organization Details Last Updated DateTime 3 162.56 cm 24.9 kg/m2 52470.8 9 g 100 % 100 % 10 91 /min 20 /min 99.5 [degF] 137 mm[Hg] 88 mm[Hg] Trina Aranda PA - [facility] 3 15:20:53 Date Recorded Body height Body mass index (BMI) Body weight Body temperature Oxygen saturation Oxygen saturation in Arterial blood by Pulse oximetry Heart rate Respiratory rate Systolic blood pressure Diastolic blood pressure Provider Name and Address Organization Details Last Updated DateTime 3 162.56 cm 24.9 kg/m2 76389.8 9 g 97.7 [degF] 98 % 98 % 94 /min 18 /min 121 mm[Hg] 75 mm[Hg] FAIZA MONTOYA PA - [facility] 14:26:43 Social History Question Answer Notes LastModified by Organizat ion Details LastModified Time Tobacco Smoking Status Never Smoker Trina Manoj null, PA - [facility] 11/03/2022 15:19:34 What [...] Details Recorded Time HPV9 6 completed Trina Lincoln null, PA - [facility] 11/03/2022 15:17:38 Influenza, MDCK, quadrivalent, PF 1 completed Trina Manoj null, PA - [facility] 11/03/2022 15:17:38 COVID-19, mRNA, LNP-S, PF, 30 mcg/0.3 mL dose 1 completed Trina Manoj null, PA - [facility] 11/03/2022 15:17:39 COVID-19, mRNA, LNP-S, PF, 30 mcg/0.3 mL dose 1 completed Trina Lincoln null, PA - [facility] 11/03/2022 15:17:39 Hep A, ped/adol, 2 dose 7 completed Trina Lincoln null, PA - [facility] 11/03/2022 15:17:39 Hep A, ped/adol, 2 dose 8 completed Trina Lincoln null, PA - [facility] 11/03/2022 15:17:39 meningococcal MCV4P 7 completed Trina Manoj null, PA - [facility] 11/03/2022 15:17:39 Influenza, split virus, quadrivalent, PF 0 completed Trina Lincoln null, PA - [facility] 11/03/2022 15:17:39 Influenza, split virus, quadrivalent, PF 8 completed Trina Lincoln null, PA - [facility] 11/03/2022 15:17:39 Influenza, split virus, quadrivalent, PF 9 completed Trina Lincoln null, PA - [facility] 11/03/2022 15:17:39 Influenza, split virus, quadrivalent, PF 6 completed Trina Manoj null, PA - [facility] 11/03/2022 15:17:39 Past Encounters Encounter ID Performer Location Encounter Start Date Encounter Closed Date Diagnosis/Indication Diagnosis SNOMED-CT Code Diagnosis ICD10 Code Diagnosis Note [id number] [facility] [address] [place] [address] 11/03/2022 10:29:21 11/03/2022 16:41:23 Acute pharyngitis 057243378 J02.9 Cough 54056062 R05.9 [id number] Ronnie Morgan MD [address] [address] [place] [address] 01/04/2023 13:12:09 01/04/2023 15:37:03 Contusion of left hand [id number] S60.222A No fractureYo ur x-ray will be [...] Bynum Member ID Guarantor Name 11/03/2022 1 [facility] NET PLAN (MEDICAID HMO) LES Samreen Mccabe [id number] Samreen Mccabe 01/04/2023 AMMIR Mccabe Notes Date [...] Sharmila Bellamy MD [address] [place], [address], [place] - [facility] 11/03/2022 16:34:02 3 text/html Wrist / Hand InjuryReported bypatient.Location:left Associated Symptoms:swelling;ecchymos is Severity:moderate Context:crush Aggravating Factors:lifting; carrying; gripping; ROM Previous InjuryNo prior injury to affected body part Ronnie Morgan MD [address], [place], [address], [place] - [facility] 01/04/2023 17:26:04 OBGyn Episode No OBEpisode recorded.
== END 2024-09-17 12:32 | disposition home or self-care (01) ==
LOC: HO.HMGCX 12:31
PROVIDERS: PCP Physician Assistant; Visit Provider Nurse Practitioner Family
DX: S99.922A Unspecified injury of left foot, initial encounter (principal)
CPT/HCPCS: 73630; 99212

== ENCOUNTER 2024-09-17 12:31 | Outpatient (AMB) | payer OTHER, SELFPAY ==
[2024-09-17 12:57] VITALS: BP 130/80; PULSE 87; O2SAT 97
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
--- OUTSIDE RECORDS SUMMARY | 2024-09-17 14:03 | XMS_ITS | Clinical Summary ---
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 Role Phone Unavailable Primary Care Provider Unavailabl e Social History Tobacco Use Types Packs/Day Years Used Date Smoking Tobacco: Never Assessed Comments Unknown Sex and Gender Information Value Date Recorded Sex Assigned at Not on file Legal Sex Female 2:50 PM EST Gender Identity Not on file Sexual Orientation Not on file Plan of Treatment Health Maintenance Due Date Last Done Comments Gonorrhea/Chlamydia Screening 2000 HPV Vaccines (1 - 3-dose series) 2015 DTaP,Tdap,and Td Vaccines (1 - Tdap) 2019 Hepatitis B Vaccines (1 of 3 - 19+ 3-dose series) 2019 Cervical Cancer Screening: P ap Smear 2021 COVID-19 Vaccine ( - 2023-2 5 season) 2024 Influenza Vaccine (#1) 2024 HIB Vaccines Aged Out No longer eligi ble based on patient's age to complete this topic Hepatitis A Vaccines Aged Out No long er eligible based on patient's age to complete this topic IPV Vaccines Aged Out No longer eligi ble based on patient's age to complete this topic MMR Vaccines Aged Out No longer eligi ble based on patient's age to complete this topic Meningococcal ACWY Vaccine Aged Out N o longer eligible based on patient's age to complete this topic Meningococcal B Vacine Aged Out No lo nger eligible based on patient's age to complete this topic Pneumococcal Vaccine: Pediat rics (0 to 5 Years) and At-Risk Patients (6 to 64 Years) Aged Out No longer eligible b ased on patient's age to complete this topic RSV Immunization Patients Un ian 20 months Aged Out No longer eligible b ased on patient's age to complete this topic Varicella Vaccines Aged Out No longer eligible based on patient's age to complete this topic
--- OUTSIDE RECORDS SUMMARY | 2024-09-17 14:03 | XMS_ITS | Clinical Summary ---
Author Organization [facility] Address [address] [place] [address] Phone Care Team Providers Care Professional Services Manager Name Role Phone Unavailable Primary Care Provider Unavailabl e Allergies Active Allergy Reactions Criticality Noted Date Comments Environmental Hives,Shortness of breath,Itching High 12/06/2018 Cats Medications Melatonin 5 MG tablet Take 5 mg by mouth. Active PARoxetine 10 MG tabletIndicatio ns:Depression with anxiety Take 1 tablet (10 mg total) by mouth every morning. 30 tablet 2 02/22/2020 Active PARoxetine 40 MG tabletIndicatio ns:Depression with anxiety TAKE 1 TABLET BY MOUTH EVERY DAY IN THE MORNING 30 tablet 04/07/2020 Active traZODone 50 MG tabletIndicatio ns:Depression with anxiety Take 1 tablet (50 mg total) by mouth nightly. 30 tablet 04/07/2020 Active Ibuprofen (ADVIL PO) Take by mouth. @@11am Active lamoTRIgine 100 MG tablet 07/19/2020 Active hydrOXYzine 25 MG tablet 07/19/2020 Active Active Problems Problem Noted Date Diagnosed Date Nexplanon in place 03/07/2019 Assessment & Plan (03/07/2019 11:59 AM EDT): Due to f/u with [employer], reminded her to schedule this. Depression with anxiety 09/27/2017 Assessment & Plan (03/25/2020 3:08 PM EDT): Has psych appt in a few days, will also be discussing restarting individual therapy Assessment & Plan (02/04/2020 9:36 AM EDT): Doing very well. Has an appt with psych in 3 months, we will refill meds until then. Is in therapy Assessment & Plan (02/06/2018 1:40 PM EDT): Currently in partial program, will be discharged this week. She has found it helpful, meds changed. She is not sure what f/u will be at this point but there will be a meeting later this week to discuss Migraine 09/27/2017 Resolved Problems Problem Noted Date Diagnosed Date Resolved Date Other constipation 03/07/2019 0 Assessment & Plan (03/07/2019 11:57 AM EDT): Alternating constipation with diarrhea could be either IBS related or constipation with overflow. Discussed titrating Miralax as needed. 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 EEG normal Immunizations Immunization Administration Dates Next Due DTaP 05/14/2005, 1,2000,08/10,2000 HPV Vaccine 9 Valent 07/25/2015 HPV, Quadrivalent 08/20/2014,06/17/2014 Hep A, ped/adol 09/27/2017,08/20/2016 Hep B, ped/adol 01/13/2001,2000,2000 Hib (PRP-T) 06/16/2001,2000,2000 IPV 05/14/2005, 1,2000,06/01 Influenza 05/14/2005,05/05/2004 Influenza, injectable, quadrivalent 05/11,04/14/2013,04/15/2012,05/04 Influenza, injectable, quadr ivalent, preservative free 05/04/2021,03/05/2020,04/21/2019,04/21,04/26/2016,04/13/2014 MMR 09/01/2004,04/06/2001 Meningococcal Conj (Menactra) MCV4P 08/20/2016,1 07/31/2010 Pneumococcal Conjugate 06/16/2001,2000,2000,06/01 Tdap 05/31/2011 Varicella 09/29/2007,04/06/2001 Family History Medical History Relation Name Comments Hyperlipidemia Father Hypertension Father Breast cancer Maternal Grandmother ADD / ADHD Sister Relation Name Status Comments Father hypertension, D M, hyperlipidemia...07/2016 of heart failure diagnosed with Hypertension, Hypercholesteremia, DMII WO CMP NT ST UNCNTR Maternal Grandfather Maternal Grandmother Alive Breast CA diagnosed with MALIGNANT NEOPLASM NOS Mother Alive healthy Other Alive Siblings: Healt hy....3 sisters and 3 brothers Paternal Grandfather Alive Paternal Grandmother Alive Alzheim er's dementia Sister Social History Tobacco Use Types Packs/Day Years Used Date Smoking Tobacco: Never Assessed Hunger/Food Answer Date Recorded In the last 12 months, did y ou or your family ever eat less than you felt you should because there wasn't enough money for food? No 02/04/2020 Stable Housing Answer Date Recorded Are you worried that in the next 2 months you may not have stable housing? No 02/04/2020 Transportation Concerns Answer Date Rec orded In the last 12 months, have you or your family ever had to go without healthcare because you didn't have a way to get there? No 02/04/2020 Hazards in Home Answer Date Recorded Think about the place you li ve. Do you have problems with any of the following? Pests (mice or roaches), mold, no/not working smoke detectors, water leaks, no window guards. No 2019 Financing Utilities Answer Date Recorde d In the last 12 months, has t he [place], gas, oil, or water [employer] threatened to shut off your services in your home? No 02/04/2020 Safety at Home Answer Date Recorded Are you or your family worried about feeling saf e in your home? No 02/04/2020 Outside Support Answer Date Recorded Do you feel that you need mo re support from other people or programs to help you care for yourself or your family? No 02/04/2020 Understanding Health Concerns Answer Da te Recorded Do you need help understandi ng your or your child's healthcare needs (diagnosis, medications, plan, etc.)? No 02/04/2020 Financing Health Concerns Answer Date R ecorded In the last 12 months, was t here a time when your child needed to see a doctor or get medications or supplies but could not because of cost? No 02/04/2020 Missing School or Work Answer Date Gianni rded Did you or your child miss s chool or work because of a health problem that could have been avoided? No 02/04/2020 Comments No Sex and Gender Information Value Date Recorded Sex Assigned at Not on file Legal Sex Female 6:22 PM EDT Gender Identity Not on file Sexual Orientation Not on file Last Filed Vital Signs Vital Sign Reading Time Taken Comments Blood Pressure 116/74 07/26/2020 11:36 AM EST Pulse 89 10/25/2020 1:35 PM EDT Temperature 36.4 ??C (97.6 ??F) 10/25/2020 1:35 PM ED T Respiratory Rate - - Oxygen Saturation 99% 10/25/2020 1:35 PM EDT Inhaled Oxygen Concentration - - Weight 88 kg (194 lb) 10/25/2020 1:35 PM EDT Height 165.1 cm (5' 5 ) 07/26/2020 11:36 AM EST Body Mass Index 32.28 07/26/2020 11:36 AM EST Plan of Treatment Health Maintenance Due Date Last Done Comments DTaP,Tdap,and Td Vaccines (7 - Td or Tdap) 05/31/2021 05/31/2011, 05/14/2005, 06/16/2001, Additional history exists Influenza Vaccines (#1) 2024 05/04/20, 03/05/2020, 04/21/2019, Additional history exists COVID-19 Vaccine ( season) 2024 10/22/2020, 10/01/2020 Hepatitis B Vaccines Completed 01/13/2001, 2000, 2000 HIB Vaccines Completed 06/16/2001, 08/2000, 2000 Pneumococcal Vaccine Completed 06/16/2001, 2000, 2000, Additional history exists MMR Vaccines Completed 09/01/2004, 04/06/2001 IPV Vaccines Completed 05/14/2005, 12/2000, 2000, Additional history exists Varicella Vaccines Completed 09/29/2007, 04/06/2001 HPV Vaccines Completed 07/25/2015, 08/11, 06/17/2014 Meningococcal Vaccine Completed 08/20/2016, 011 Hepatitis A Vaccines Completed 09/27/2017, 08/20/19 17 Men B Vaccine Aged Out No longer elig ible based on patient's age to complete this topic Procedures * Due to [place] [employer] law, this organization might not be sharing sensitive test results. Procedure Name Priority Date/Time Associated Diagnosis Comments CHLAMYDIA AND GONORRHEA, AMPLIFIED Routine 05/15/2020 2:50 PM EST Dysuria from Last 3 Months or Most Recently Relevant to Health Maintenance Results * Due to [place] [employer] law, this organization might not be sharing sensitive test results. * Chlamydia and Gonorrhoea, Amplified (05/15/2020 2:50 PM EST) Chlamydia Trachomatis, DNA Probe NOT DETECTED (NEG) [facility] Comment:Reference range: NOT DETECTED URINE GC AMP PROBE NOT DETECTED (NEG) [facility] Comment: Reference range: NOT DETECTED (NOTE) The analytical performance characteristics of this assay, when used to test SurePath(TM) specimens have been determined by [employer]. The modifications have not been cleared or approved by the FDA. This assay has been validated pursuant to the CLIA regulations and is used for clinical purposes. = For additional information, please refer to https://education.Sightly.Farehelper/faq/XQB798 (This link is being provided for information/ educational purposes only.) = Test Performed by: [facility], [address] [place] [address]. [id number]. Space Technologist: Dee Domingo MD. Testing performed or reported by [facility], a Service of [facility], [address] [place] [id number] Red Martinez MD, Silicator Urine 05/15/2020 2:50 PM EST 05/15/2020 9:19 PM EST us Marcia Quintero MD LAB MICROBIOLOGY - GENERAL ORDER ABDULLAHI Final Result [facility] from Last 3 Months or Most Recently Relevant to Health Maintenance Insurance [facility] [address] NON PCC
--- OUTSIDE RECORDS SUMMARY | 2024-09-17 14:03 | XMS_ITS | Encounter Summary ---
Author Organization [facility] Address [address] [place] [id number] Phone Care Team Providers Care Marine Meteorologist Name Role Phone Tyler May DO Primary Care Provider [phone] Encounter Details Date Type Department Care Team (Late st Contact Info) Description 11/27/2017 Conversion Encounter [facility] [address] [place] [address] Tyler May DO [address] [place] [address] Social History Tobacco Use Types Packs/Day Years Used Date Smoking Tobacco: Never Assessed Comments Unknown Sex and Gender Information Value Date Recorded Sex Assigned at Not on file Legal Sex Female 6:22 PM EDT Gender Identity Not on file Sexual Orientation Not on file documented as of this encounter Plan of Treatment Not on file documented as of this encounter Visit Diagnoses Not on filedocumented in this encounter Care Teams Marine Meteorologist Relationship Specialty Start Date End Date Tyler May DO [address] [place] [address] PCP - General 11/16/17 04/17/24 documented as of this encounter
--- OUTSIDE RECORDS SUMMARY | 2024-09-17 14:04 | XMS_ITS | Encounter Summary ---
Author Organization [facility] Address [address] [place] [address] Phone Care Team Providers Care Cable Television Line Technician Name Role Phone Tyler May DO Primary Care Provider [phone] Encounter Details Date Type Department Care Team (Late st Contact Info) Description 08/18/2009 Documentation [facility] Family Medicine [address] [place] [address] Family Medicine, Physician [address] [place], [place] [id number] Social History Tobacco Use Types Packs/Day Years [...] on filedocumented in this encounter Care Teams Cable Television Line Technician Relationship Specialty Start Date End Date Tyler May DO [address] [place] [address] PCP - General 11/16/17 04/17/24 documented as of this encounter
== END 2024-09-17 14:06 | disposition home or self-care (01) ==
PROVIDERS: PCP Physician Assistant; Visit Provider Nurse Practitioner Family
DX: S99.922A Unspecified injury of left foot, initial encounter (principal); L03.032 Cellulitis of left toe

== ENCOUNTER → 2024-09-17 13:37 | Outpatient (BNV) | payer OTHER, SELFPAY | PROVIDERS: PCP Physician Assistant; Visit Provider Radiology Diagnostic Radiology | DX: S99.922A Unspecified injury of left foot, initial encounter (principal) | CPT/HCPCS: 73630 ==

== ENCOUNTER 2024-09-25 15:29 | Outpatient (AMB) | payer OTHER, SELFPAY ==
[2024-09-25 15:30] VITALS: BP 116/64; PULSE 110; TEMP 36.5; O2SAT 99; BMI 38.4
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
--- OUTSIDE RECORDS SUMMARY | 2024-09-25 18:22 | XMS_ITS | Encounter Summary ---
Author Organization [facility] Address [address] [place] [address] Phone Care Team Providers Care Supervisor Channel Process Name Role Phone Tyler May DO Primary Care Provider [phone] Encounter Details Date Type Department Care Team (Late st Contact Info) Description 08/18/2009 Documentation [facility] Family Medicine [address] [place] [address] Family Medicine, Physician [address] [place], [place] [address] Social History Tobacco Use Types Packs/Day Years [...] on filedocumented in this encounter Care Teams Supervisor Channel Process Relationship Specialty Start Date End Date Tyler May DO [address] [place] [address] PCP - General 11/16/17 04/17/24 documented as of this encounter
--- OUTSIDE RECORDS SUMMARY | 2024-09-25 18:22 | XMS_ITS | Encounter Summary ---
Author Organization [facility] Address [address] [place] [phone] Phone Care Team Providers Care Fire Department Battalion Chief Name Role Phone Tyler May DO Primary Care Provider [phone] Encounter Details Date Type Department Care Team (Late st Contact Info) Description 11/27/2017 Conversion Encounter [facility] [address] [place] [address] Tyler May DO [address] [place] [address] Social History Tobacco Use Types Packs/Day Years [...] on filedocumented in this encounter Care Teams Fire Department Battalion Chief Relationship Specialty Start Date End Date Tyler May DO [address] [place] [address] PCP - General 11/16/17 04/17/24 documented as of this encounter
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
--- OUTSIDE RECORDS SUMMARY | 2024-09-25 18:22 | XMS_ITS | Data Portability ---
Author Organization [facility], [address] Address [address] [place] [address] Assessment No assessment recorded. Plan of Treatment Reminders Order Date Submit Date Provider Last Modified By Organization Details Last Modified Time Details Appointments None recorded. Lab rapid SARS CoV 2 Ag, QL IA, respiratory specimen 2022 023 [email or web address] 5 [facility], [address] [place] [address], [address], 3 16:27:48 rapid flu (A+B) 2022 023 [email or web address] 5 _[facility], [address] [place] [address], [address], 3 16:27:48 rapid strep group A, throat 2022 023 [email or web address] 5 _[facility], [address] [place] [address], [address], 3 16:27:48 streptococc us group A, culture, throat 2022 023 VANDUSER [facility], [address] [place] [address], [place], [address], 3 08:07:54 Referral None recorded. Procedures None recorded. Surgeries None recorded. Imaging XR, hand, 3 or more view 2022 023 VANDUSER [facility], [address] [place] [address]., [place], [address], 16:31:35 Medication Orders acetaminoph en 325 mg tablet 2022 023 [email or web address] 1 Not available 14:24:36 amoxicillin 500 mg capsule 2022 023 [email or web address] 1 [id number], [address] [facility], [place], [address], 14:24:39 Patient TargetsNo targets recorded. Patient Instructions Encounter Date Encounter Id Patient Instructions Last Modified By Organization Details Last Modified Time 11/03/2022 [id number] cough: care instructions [email or web address] Not available 11/03/2022 16:28:31 sore throat: car e instructions Not available 11/03/2022 16:27:48 strep throat: care instructions [email or web address] Not available 11/03/2022 16:28:31 Rest. Drink plenty [...] intractable vomiting, blood in vomit or stool. [email or web address] Not available 11/03/2022 16:32:30 Reason for Referral None Reported. Results Created Date Observation Date Name Description Value Unit Range Abnormal Flag Note LastModifiedBy Organization Detail LastModifiedTime 11/04/1911/06/2022 BETA STREP GP A CULTU RE beta strep gp A culture NEGATI VE Refer ence Range : Negat hal Not Available [facility] ([facility]) [address] [facility], [place], [address], 11/06/2022 08:07:54 11/04/1911/03/2022 rapid SARS CoV 2 Ag, QL IA, respi rator y speci men Unknown Analyte Normal =Negat hal Not Available [facility] [place], [address], 11/03/2022 15:56:12 11/04/19 23 11/03/2022 rapid SARS CoV 2 Ag, QL IA, respi rator y speci men Unknown Analyte negati ve Not Available [address] [place] [address], [place], [address], 11/03/2022 15:56:12 11/04/19 23 11/03/2022 rapid flu (A+B) Unknown Analyte Normal = Negati ve Not Available [address] [place] [address], [place], [address], 11/03/2022 15:56:13 11/04/19 23 11/03/2022 rapid flu (A+B) Unknown Analyte Normal = Negati ve Not Available [address] [place] [address], [address], 11/03/2022 15:56:13 11/04/19 23 11/03/2022 rapid flu (A+B) Unknown Analyte negati ve Not Available [address] [place] [address], [place], [address], 11/03/2022 15:56:13 11/04/19 23 11/03/2022 rapid flu (A+B) Unknown Analyte negati ve Not Available [address] [place] [address], [place], [address], 11/03/2022 15:56:13 11/04/19 23 11/03/2022 rapid strep group A, throa t Unknown Analyte Normal = Negati ve Not Available [address] [place] [address], [place], [address], 11/03/2022 15:40:46 11/04/19 23 11/03/2022 rapid strep group A, throa t Unknown Analyte negati ve Not Available [address] [facility], [place], [address], 11/03/2022 15:40:46 01/05/20 23 01/04/2023 XR, hand, 3 or more view No observ ation record ed. [email or web address] [facility] [address] [place], [address], 01/04/2023 17:26:47 Result Notes None recorded. Problems Name Problem SNOMED Code Status Onset Date Resolution Date Notes Provider Name and Address Organization Details Recorded Time Anxiety 03586057 Active 023 [place] avalos, [place] - [facility] 3 15:19:20 Depressive disorder 29464382 Active 023 [place] avalos, [place] - [facility] 3 15:19:25 Problem Notes None recorded. Procedures Surgical History None recorded. Imaging Results Imaging Date Name Status LastModified by Organiz ation Details LastModified Time 01/04/2023 XR, hand, 3 or more view completed [email or web address] [address] [place], [address], 01/04/2023 17:26:47 Procedure Notes None recorded. Medical Equipment None Reported. Allergies Allergen ID Allergen Name Allergen Category Reaction Reaction Severity Criticality Documentation Date Start Date Code Code System Note Provider Name and Address Organization Details Recorded Time 945646 amoxicill in medicatio n Not available Not [...] Updated DateTime 3 162.56 cm 24.9 kg/m2 32903.8 9 g 100 % 100 % 10 [...] Updated DateTime 3 162.56 cm 24.9 kg/m2 82699.8 9 g 97.7 [degF] 98 % 98 [...] Details Recorded Time HPV9 6 completed Trina Mahaska null, [place] - [facility] 11/03/2022 15:17:38 Influenza, MDCK, quadrivalent, PF 1 completed Trina Manoj null, PA - [facility] 11/03/2022 15:17:38 COVID-19, mRNA, LNP-S, PF, 30 mcg/0.3 mL dose 1 completed Trina Manoj null, [place] - [facility] 11/03/2022 15:17:39 COVID-19, mRNA, LNP-S, PF, 30 mcg/0.3 mL dose 1 completed Trina Mah[place] null, [place] - [facility] 11/03/2022 15:17:39 Hep A, ped/adol, 2 dose 7 completed Trina Mahaska null, [place] - [facility] 11/03/2022 15:17:39 Hep A, ped/adol, 2 dose 8 completed Trina Mahaska null, [place] - [facility] 11/03/2022 15:17:39 meningococcal MCV4P 7 completed Trina Manoj null, PA - [facility] 11/03/2022 15:17:39 Influenza, split virus, quadrivalent, PF 0 completed Trina Mahaska null, PA - [facility] 11/03/2022 15:17:39 Influenza, split virus, quadrivalent, PF 8 completed Trina Mahaska null, [place] - [facility] 11/03/2022 15:17:39 Influenza, split virus, quadrivalent, PF 9 completed Trina Mahaska null, [place] - [facility] 11/03/2022 15:17:39 Influenza, split virus, quadrivalent, PF 6 completed Trina Manoj null, [place] - [facility] 11/03/2022 15:17:39 Past Encounters Encounter ID Performer Location Encounter Start Date Encounter Closed Date Diagnosis/Indication Diagnosis SNOMED-CT Code Diagnosis ICD10 Code Diagnosis Note [id number] [place] [facility] [address] [address] [place] [phone] 11/03/2022 10:29:21 11/03/2022 16:41:23 Acute pharyngitis 086114557 J02.9 Cough 65877381 R05.9 [id number] Ronnie Morgan MD [address] [facility] [address] [place] [address] 01/04/2023 13:12:09 01/04/2023 15:37:03 Contusion of left hand [id number] 4418871 S60.222A No fractureYo ur x-ray will be [...] Bynum Member ID Guarantor Name 11/03/2022 1 [facility] NET PLAN (MEDICAID HMO) LES Samreen Mccabe [id number] Samreen Mccabe 01/04/2023 AMMIR Mccabe Notes Date [...] Sharmila Bellamy MD [address] [place], [address], [place] - [facility] 11/03/2022 16:34:02 3 text/html Wrist / Hand InjuryReported bypatient.Location:left Associated Symptoms:swelling;ecchymos is Severity:moderate Context:crush Aggravating Factors:lifting; carrying; gripping; ROM Previous InjuryNo prior injury to affected body part Ronnie Morgan MD [address], [place], [address], [place] - [facility] 01/04/2023 17:26:04 OBGyn Episode No OBEpisode recorded.
--- OUTSIDE RECORDS SUMMARY | 2024-09-25 18:22 | XMS_ITS | Clinical Summary ---
Author Organization [facility] ity Address [address] [place] [address] Care Team Providers Care Post Graduate Internship Name Role Phone Unavailable Primary Care Provider [...]
== END 2024-09-25 16:03 | disposition home or self-care (01) ==
PROVIDERS: PCP Physician Assistant; Visit Provider Physician Assistant
DX: L03.032 Cellulitis of left toe (principal); B37.31 Acute candidiasis of vulva and vagina

== ENCOUNTER → 2024-09-25 15:29 | Outpatient (BNVA) | payer OTHER, SELFPAY | PROVIDERS: PCP Physician Assistant; Visit Provider Physician Assistant | DX: L03.032 Cellulitis of left toe (principal); B37.31 Acute candidiasis of vulva and vagina | CPT/HCPCS: 99212 ==

== ENCOUNTER 2025-04-25 14:02 | Outpatient (AMB) | payer OTHER, SELFPAY ==
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
--- OUTSIDE RECORDS SUMMARY | 2025-04-25 17:51 | XMS_ITS | Data Portability ---
Author Organization NIKKI Ndiaye [facility], [facility] Address [address] [place] [address] Assessment No assessment recorded. Plan of Treatment Reminders Order Date Submit Date Provider Last Modified By Organization Details Last Modified Time Details Appointments None recorded. Lab rapid SARS CoV 2 Ag, QL IA, respiratory specimen 2022 023 [email or web address], [address] [place] [address], [phone], 3 16:27:48 rapid flu (A+B) 2022 023 [email or web address] 5 [facility], [address] [place] [address], [address], 3 16:27:48 rapid strep group A, throat 2022 023 [email or web address] 5 [facility], [address] [place] [address], [address], 3 16:27:48 streptococc us group A, culture, throat 2022 023 MUD BUTTE [facility], [address] [place] [address], [place], [address], 3 08:07:54 Referral None recorded. Procedures None recorded. Surgeries None recorded. Imaging XR, hand, 3 or more view 2022 023 [facility], [address] [place], [address], 16:31:35 Medication Orders acetaminoph en 325 mg tablet 2022 023 [email or web address] 1 Not available 14:24:36 amoxicillin 500 mg capsule 2022 023 [email or web address] 1 [id number], [address] [facility], [place], [address], 14:24:39 Patient TargetsNo targets recorded. Patient Instructions Encounter Date Encounter Id Patient Instructions Last Modified By Organization Details Last Modified Time 11/03/2022 [id number] cough: care instructions [email or web address] Not available 11/03/2022 16:28:31 sore throat: car e instructions [email or web address] Not available 11/03/2022 16:27:48 strep throat: care instructions [email or web address] Not available 11/03/2022 16:28:31 Rest. Drink plenty [...] intractable vomiting, blood in vomit or stool. [email or web address] Not available 11/03/2022 16:32:30 Reason for Referral None Reported. Results Created Date Observation Date Name Description Value Unit Range Abnormal Flag Note LastModifiedBy Organization Detail LastModifiedTime 11/04/1911/06/2022 BETA STREP GP A CULTU RE beta strep gp A culture NEGATI VE Refer ence Range : Negat hal Not Available [facility] ([facility]) [address], [place], [address], 11/06/2022 08:07:54 11/04/19 23 11/03/2022 rapid SARS CoV 2 Ag, QL IA, respi rator y speci men Unknown Analyte Normal =Negat hal Not Available [address], [place], [address], 11/03/2022 15:56:12 11/04/19 23 11/03/2022 rapid SARS CoV 2 Ag, QL IA, respi rator y speci men Unknown Analyte negati ve Not Available [address] [place] [address], [place], [address], 11/03/2022 15:56:12 11/04/19 23 11/03/2022 rapid flu (A+B) Unknown Analyte Normal = Negati ve Not Available [address] [place] [address], [place], [address], 11/03/2022 15:56:13 11/04/19 23 11/03/2022 rapid flu (A+B) Unknown Analyte Normal = Negati ve Not Available [address] [place] [address], [place], [address], 11/03/2022 15:56:13 11/04/19 23 11/03/2022 rapid flu (A+B) Unknown Analyte negati ve Not Available [address], [place], [address], 11/03/2022 15:56:13 11/04/19 23 11/03/2022 rapid flu (A+B) Unknown Analyte negati ve Not Available [address] [place] [address], [place], [address], 11/03/2022 15:56:13 11/04/19 23 11/03/2022 rapid strep group A, throa t Unknown Analyte Normal = Negati ve Not Available [address] [place] [address], [place], [address], 11/03/2022 15:40:46 11/04/19 23 11/03/2022 rapid strep group A, throa t Unknown Analyte negati ve Not Available [address] [facility], [place], [address], 11/03/2022 15:40:46 01/05/20 23 01/04/2023 XR, hand, 3 or more view No observ ation record ed. [email or web address] [facility] [address] [place], [address], 01/04/2023 17:26:47 Result Notes None recorded. Problems Name Problem SNOMED Code Status Onset Date Resolution Date Notes Provider Name and Address Organization Details Recorded Time Anxiety 45027071 Active 023 Trina Manoj null, [place] - [facility] 3 15:19:20 Depressive disorder 02294095 Active 023 Trina Pahoa null, [place] - [facility] 3 15:19:25 Problem Notes None recorded. Medical Equipment None Reported. Allergies Allergen ID Allergen Name Allergen Category Reaction Reaction Severity Criticality Documentation Date Start Date Code Code System Note Provider Name and Address Organization Details Recorded Time 449235 amoxicill in medicatio n Not available Not available Not available 01/04/2023 723 RxNorm FAIZA MONTOYA null, [place] - [facility] 3 14:24:02 Medications [...] Heart rate Respiratory rate Body temperature Systolic And Diastolic Provider Name and Address Organization Details Last Updated DateTime 3 162.56 cm 24.9 kg/m2 50258.8 9 g 100 % 100 % 10 91 /min 20 /min 99.5 [degF] 137/88 mm[Hg] Trina Aranda PA - [facility] 15:20:53 Date Recorded Body height Body mass index (BMI) Body weight Body temperature Oxygen saturation Oxygen saturation in Arterial blood by Pulse oximetry Heart rate Respiratory rate Systolic And Diastolic Provider Name and Address Organization Details Last Updated DateTime 3 162.56 cm 24.9 kg/m2 46074.8 9 g 97.7 [degF] 98 % 98 % 94 /min 18 /min 121/75 mm[Hg] FAIZA JORDAN - [facility] 14:26:43 Social History Question Answer Notes LastModified by Organizat ion Details LastModified Time Tobacco Smoking Status Never Smoker Trina avalos PA Arnaldo [facility] 11/03/2022 15:19:34 Have You Had Direct Contact, Or Contact During Intimacy, With Monkeypox Rash, Scabs, Or Body Fluids From A Person With Monkeypox? No Information not available 11/03/2022 Have You Recently Traveled Abroad? No Information not available 11/03/2022 Sex: Unknown Functional Status Question Answer Note LastModified by Organizat ion Details LastModified Time Do you use any illicit or recreational drugs? No Information not available 11/03/2022 Do you or have you ever used any other forms of tobacco or nicotine? No Information not available 11/03/2022 What is your level of alcohol consumption? None Information not available 11/03/2022 Are you currently employed? 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 Family History Relationship [...] Details Recorded Time HPV9 6 completed Trina Manoj null, [place] - [facility] 11/03/2022 15:17:38 Influenza, MDCK, quadrivalent, PF 1 completed Trina Manoj null, [place] - [facility] 11/03/2022 15:17:38 COVID-19, mRNA, LNP-S, PF, 30 mcg/0.3 mL dose 1 completed Trina Manoj null, [place] - [facility] 11/03/2022 15:17:39 COVID-19, mRNA, LNP-S, PF, 30 mcg/0.3 mL dose 1 completed Trina Pahoa null, [place] - [facility] 11/03/2022 15:17:39 Hep A, ped/adol, 2 dose 7 completed Trina Pahoa null, [place] - [facility] 11/03/2022 15:17:39 Hep A, ped/adol, 2 dose 8 completed Trina Pahoa null, [place] - [facility] 11/03/2022 15:17:39 meningococcal MCV4P 7 completed Trina Pahoa null, [place] - [facility] 11/03/2022 15:17:39 Influenza, split virus, quadrivalent, PF 0 completed Trina Manoj null, [place] - [facility] 11/03/2022 15:17:39 Influenza, split virus, quadrivalent, PF 8 completed Trina Manoj null, PA - [facility] 11/03/2022 15:17:39 Influenza, split virus, quadrivalent, PF 9 completed Trina Pahoa null, PA - [facility] 11/03/2022 15:17:39 Influenza, split virus, quadrivalent, PF 6 completed Trina Pahoa null, [place] - [facility] 11/03/2022 15:17:39 Past Encounters Encounter ID Performer Location Encounter Start Date Encounter Closed Date Diagnosis/Indication Diagnosis SNOMED-CT Code Diagnosis ICD10 Code Diagnosis IMO Codes Diagnosis Note [id number] [place] [address] [address] 11/03/2022 10:29:21 11/03/2022 16:41:23 Acute pharyngitis 935818810 J02.9 Cough 41484920 R05.9 [id number] Ronnie Morgan [place] [address] [address] 01/04/2023 13:12:09 01/04/2023 15:37:03 Contusion of left hand 7569085722 1161512 S60.222A No fractureYo ur x-ray will be [...] Recorded Advance Directives Directive None Recorded Payers Insurance Date Sequence Insurance Name Policy Number Policy Bynum Covered Member ID Bynum Member ID Guarantor Name 11/03/2022 1 [facility] Samreen Mccabe [id number] Samreen Mccabe 11/03/2022 1 [place] [facility] Samreen Mccabe [id number] Samreen Mccabe 01/05/2023 1 [facility] NET PLAN (MEDICAID HMO) [place] Samreen Mccabe [id number] Samreen Mccabe 01/05/2023 AMGUARD Samreen Mccabe Notes Date Note Type Note Provider Name and Address Organization Details Recorded Time 3 text/html Sore throatReported by PatientSore ThroatFor associated symptoms, patient reportssore throat,weakness,fever,c oughing,nausea, andabdominal painbut reportsno shortness of breath,no wheezing, andno sinus pain. For source of patient information, patient reportsinformation obtained from patientandpatient arrived at urgent care ambulatory. For location, patient reportsthroat. For severity, patient reportsmoderate. For quality, patient reportshurts to swallow. For onset/timing, patient reports2 days. For context, patient reportsno sick contactsandnon-smoker. For modifying factors, patient reportsotc medication no relief*.22 year old female presenting for evaluation of [...] Sharmila Bellamy MD [address] [place], [address], [place] - [facility] 11/03/2022 16:34:02 3 text/html Wrist / Hand InjuryReported by PatientHPIFor associated symptoms, patient reportsswellingandecchy mosis. For location, patient reportsleft. For severity, patient reportsmoderate. For aggravating factors, patient reportslifting,carrying ,gripping, androm. For previous injury, patient reportsno prior injury to affected body part. For context, (crush). Ronnie Morgan MD [address] [place], [address], [place] - [facility] 01/04/2023 17:26:04 OBGyn Episode No OBEpisode recorded.
--- OUTSIDE RECORDS SUMMARY | 2025-04-25 17:51 | XMS_ITS ---
Author Name [facility] Organization Unknown History of Medication Use Medication Directions Dispensed Refills Start Date End Date Stat us albuterol sulfateTak Sam date recordedNo form recordedNo frequency recordedNo route recordedNo set duration recordedNo set duration amount recordedactiveNo dosage strength recordedNo dosage strength units of measure recorded active NexplanonTakeNo date recordedNo form recordedNo frequency recordedNo route recordedNo set duration recordedNo set duration amount recordedactiveNo dosage strength recordedNo dosage strength units of measure recorded active LaMICtalTakeNo date recordedNo form recordedNo frequency recordedNo route recordedNo set duration recordedNo set duration amount recordedactiveNo dosage strength recordedNo dosage strength units of measure recorded active hydrOXYzine HCLTakeN o date recordedNo form recordedNo frequency recordedNo route recordedNo set duration recordedNo set duration amount recordedactiveNo dosage strength recordedNo dosage strength units of measure recorded active traZODoneTakeNo date recordedNo form recordedNo frequency recordedNo route recordedNo set duration recordedNo set duration amount recordedactiveNo dosage strength recordedNo dosage strength units of measure recorded active Problems Problem Status Onset Date Problem Type Date of Resoluti on Source Depression active ProblemAct [facility] Unspecified sprain of left wrist, initial encounter active 2023-09-09 ProblemAct [facility] Anxiety disorder, unspecified active ProblemAct [facility] Sleep disorder, unspecified active ProblemAct [facility] Pain in left wrist active 2023-09-09 ProblemAct [facility] Care Team Organization Name Specialty Phone Email Start Date End Da te [facility] NO PROVIDER Primary Care 09/09/2023 03/05/2025 [facility] NO PROVIDER Primary Care 09/09/2023
--- OUTSIDE RECORDS SUMMARY | 2025-04-25 17:51 | XMS_ITS | Clinical Summary ---
Author Organization [facility] ity Address [address] [place] [address] Care Team Providers Care Equipment Maintenance Engineer Name Role Phone Unavailable Primary Care Provider Unavailabl e Social History Tobacco Use Types Packs/Day Years Used Date Smoking Tobacco: Never Assessed Comments Unknown Sex and Gender Information Value Date Recorded Sex Assigned at Not on file Legal Sex Female 2:50 PM EST Gender Identity Not on file Sexual Orientation Not on file Plan of Treatment Health Maintenance Due Date Last Done Comments HPV Vaccines (1 - 3-dose series) 2015 DTaP,Tdap,and Td Vaccines (1 - Tdap) 2019 Hepatitis B Vaccines (1 of 3 - 19+ 3-dose series) 2019 Cervical Cancer Screening: P ap Smear 2021 Depression Screening 07/11/2024 COVID-19 Vaccine ( - 2023-2 5 season) 2025 Influenza Vaccine (#1) 2025 RSV Immunization Adult Patie nts (1 - 1-dose 75+ series) 2075 HIB Vaccines Aged Out No longer eligi [...] age to complete this topic Meningococcal B Vaccine Aged Out No l onger eligible based on patient's age to complete this topic Pneumococcal Vaccine: Pediat rics (0 to 5 Years) and At-Risk Patients (6 to 49 Years) Aged Out No longer eligible b ased on patient's age to complete this topic RSV Immunization Patients Un ian 20 months Aged Out No longer eligible b ased on patient's age to complete this topic Varicella Vaccines Aged Out No longer eligible based on patient's age to complete this topic
--- OUTSIDE RECORDS SUMMARY | 2025-04-25 17:51 | XMS_ITS | Encounter Summary ---
Author Organization [facility] Address [address] [place] [address] Phone Care Team Providers Care Rotary Dump Operator Name Role Phone Tyler May DO Primary Care Provider Encounter Details Date Type Department Care Team (Late st Contact Info) Description 11/27/2017 Conversion Encounter [facility] [address] [place] [address] Tyler May DO [address] [place] [address] Social History Tobacco Use Types Packs/Day Years [...] on filedocumented in this encounter Care Teams Rotary Dump Operator Relationship Specialty Start Date End Date Tyler May DO [address] [place] [address] PCP - General 11/16/17 04/17/24 documented as of this encounter
--- OUTSIDE RECORDS SUMMARY | 2025-04-25 17:51 | XMS_ITS | Clinical Summary ---
Author Organization [facility] Address [address] [place] [address] Phone Care Team Providers Care [employer] Fitness Instructor Name Role Phone Unavailable Primary Care Provider [...] 11:59 AM EDT): Due to f/u with Wildlife Conservation Professor, reminded her to schedule this. Depression with [...] the last 12 months, has t he [employer], gas, oil, or water [employer] threatened to shut off your services in [...] 89 10/25/2020 1:35 PM EDT Temperature 36.4 C (97.6 F) 10/25/2020 1:35 PM EDT Respiratory Rate - - Oxygen Saturation 99% [...] 06/16/2001, Additional history exists Influenza Vaccines (#1) 2025 05/04/20, 03/05/2020, 04/21/2019, Additional history exists COVID-19 Vaccine ( season) 2025 10/22/2020, 10/01/2020 Hepatitis B Vaccines Completed 01/13/2001, [...] complete this topic Procedures * Due to [place] [employer] law, this organization might not be sharing sensitive test results. Procedure Name Priority Date/Time Associated Diagnosis Comments CHLAMYDIA AND GONORRHEA, AMPLIFIED Routine 05/15/2020 2:50 PM EST Dysuria from Last 3 Months or Most Recently Relevant to Health Maintenance Results * Due to [place] [employer] law, this organization might not be sharing sensitive test results. * Chlamydia and Gonorrhoea, Amplified (05/15/2020 2:50 PM EST) Chlamydia Trachomatis, DNA Probe NOT DETECTED (NEG) [facility] Comment:Reference range: NOT DETECTED URINE GC AMP PROBE NOT DETECTED (NEG) [facility] Comment: Reference range: NOT DETECTED (NOTE) The analytical performance characteristics of this assay, when used to test SurePath(TM) specimens have been determined by [employer]. The modifications have not been cleared or approved by the FDA. This assay has been validated pursuant to the CLIA regulations and is used for clinical purposes. = For additional information, please refer to https://education.[employer]/faq/NFC328 (This link is being provided for information/ educational purposes only.) = Test Performed by: [employer], [address] [place] [address]. [id number]. Coding Educator: Dee Domingo MD. Testing performed or reported by [facility], a Service of [facility], [address] [place] [address] Red Martinez MD, Digital Artist Urine 05/15/2020 2:50 PM EST 05/15/2020 9:19 PM EST us Marcia Quintero MD LAB MICROBIOLOGY - GENERAL ORDER ABDULLAHI Final Result [facility] from Last 3 Months or Most Recently Relevant to Health Maintenance Insurance [facility] NON PCC
--- OUTSIDE RECORDS SUMMARY | 2025-04-25 17:51 | XMS_ITS | Encounter Summary ---
Author Organization [facility] Address [address] [place] [address] Phone Care Team Providers Care Wallpaper Consultant Name Role Phone Tyler May DO Primary Care Provider [phone] Encounter Details Date Type Department Care Team (Late st Contact Info) Description 08/18/2009 Documentation [facility] Family Medicine [address] [place] [address] Family Medicine, Physician [address] [place], [place] [address] Social History Tobacco Use Types Packs/Day Years [...] on filedocumented in this encounter Care Teams Wallpaper Consultant Relationship Specialty Start Date End Date Tyler May DO [address] [place] [address] PCP - General 11/16/17 04/17/24 documented as of this encounter
== END 2025-04-25 15:33 | disposition home or self-care (01) ==
PROVIDERS: PCP Physician Assistant; Visit Provider Student in an Organized Health Care Education/Training Program
DX: L03.032 Cellulitis of left toe (principal); L60.0 Ingrowing nail; M79.675 Pain in left toe(s); S99.922A Unspecified injury of left foot, initial encounter
CPT/HCPCS: 11730; 99204

== ENCOUNTER 2025-04-25 14:02 | Outpatient (REF) | payer OTHER, SELFPAY | END 2025-04-25 14:03 | disposition home or self-care (01) | LOC: HO.LNP 14:02 | PROVIDERS: PCP Physician Assistant; Visit Provider Student in an Organized Health Care Education/Training Program | DX: L03.032 Cellulitis of left toe (principal); L60.0 Ingrowing nail; S99.922A Unspecified injury of left foot, initial encounter; M79.675 Pain in left toe(s) | CPT/HCPCS: 11730; 87070; 87077; 87186; 87205; 99202; J2003 ==

== ENCOUNTER 2025-05-07 15:32 | Outpatient (REF) | payer OTHER, SELFPAY ==
--- NOTE | ~2025-05-07 | XR_ITS ---
EXAMINATION: XR FOOT, LEFT CLINICAL INFORMATION: S99.922A - Unspecified injury of left foot, initial encounter COMPARISON: September 17, 2024 TECHNIQUE: AP, lateral, and oblique views of the left foot. FINDINGS: There is mild hallux valgus deformity. No acute bony abnormality is evident. No degenerative changes are seen. XR/XR foot LT min 3V IMPRESSION: Mild hallux valgus deformity Electronically signed by: Rakan Burton MD 05/07/2025 03:51 PM EDT
--- OUTSIDE RECORDS SUMMARY | 2025-05-07 19:52 | XMS_ITS | Data Portability ---
Author Organization [facility], [facility] Address [address] [place] [address] Assessment No assessment recorded. Plan of Treatment Reminders Order Date Submit Date Provider Last Modified By Organization Details Last Modified Time Details Appointments None recorded. Lab rapid SARS CoV 2 Ag, QL IA, respiratory specimen 2022 [email or web address], [address] [place] [address], [phone], 3 16:27:48 rapid flu (A+B) 2022 023 [email or web address] 5 [facility], [address] [place] [address], [address], 3 16:27:48 rapid strep group A, throat 2022 023 [email or web address] 5 [facility], [address] [place] [address], [address], 3 16:27:48 streptococc us group A, culture, throat 2022 023 DURANGO [facility], [address] [place] [address], [place], [address], 3 08:07:54 Referral None recorded. Procedures None recorded. Surgeries None recorded. Imaging XR, hand, 3 or more view 2022 023 [facility], [address] [place], [address], 16:31:35 Medication Orders acetaminoph en 325 mg tablet 2022 023 [email or web address] 1 Not available 14:24:36 amoxicillin 500 mg capsule 2022 023 [email or web address] 1 [id number], [address] [facility], [place], [address], 14:24:39 Patient TargetsNo targets recorded. Patient Instructions Encounter Date Encounter Id Patient Instructions Last Modified By Organization Details Last Modified Time 11/03/2022 [id number] cough: care instructions [email or web address] Not available 11/03/2022 16:28:31 sore throat: car e instructions Not available 11/03/2022 16:27:48 strep throat: care instructions [email or web address] Not available 11/03/2022 16:28:31 Rest. Drink plenty [...] intractable vomiting, blood in vomit or stool. [email or web address] Not available 11/03/2022 16:32:30 Reason for Referral None Reported. Results Created Date Observation Date Name Description Value Unit Range Abnormal Flag Note LastModifiedBy Organization Detail LastModifiedTime 11/04/1911/06/2022 BETA STREP GP A CULTU RE beta strep gp A culture NEGATI VE Refer ence Range : Negat hal Not Available [facility] ([facility]) [address] [facility], [place], [address], 11/06/2022 08:07:54 11/04/19 23 11/03/2022 rapid SARS CoV 2 Ag, QL IA, respi rator y speci men Unknown Analyte Normal =Negat hal Not Available [address], [place], [address], 11/03/2022 15:56:12 11/04/19 23 11/03/2022 rapid SARS CoV 2 Ag, QL IA, respi rator y speci men Unknown Analyte negati ve Not Available [address] [place] [address], [place], [address], 11/03/2022 15:56:12 11/04/19 23 11/03/2022 rapid flu (A+B) Unknown Analyte Normal = Negati ve Not Available [address] [place] [address], [place], [address], 11/03/2022 15:56:13 11/04/19 23 11/03/2022 rapid flu (A+B) Unknown Analyte Normal = Negati ve Not Available [address] [place] [address], [place], [address], 11/03/2022 15:56:13 11/04/19 23 11/03/2022 rapid flu (A+B) Unknown Analyte negati ve Not Available [address], [place], [address], 11/03/2022 15:56:13 11/04/19 23 11/03/2022 rapid flu (A+B) Unknown Analyte negati ve Not Available [address] [place] [address], [place], [address], 11/03/2022 15:56:13 11/04/19 23 11/03/2022 rapid strep group A, throa t Unknown Analyte Normal = Negati ve Not Available [address] [place] [address], [place], [address], 11/03/2022 15:40:46 11/04/19 23 11/03/2022 rapid strep group A, throa t Unknown Analyte negati ve Not Available [address] [facility], [place], [address], 11/03/2022 15:40:46 01/05/20 23 01/04/2023 XR, hand, 3 or more view No observ ation record ed. [email or web address] [facility] [address] [place], [address], 01/04/2023 17:26:47 Result Notes None recorded. Problems Name Problem SNOMED Code Status Onset Date Resolution Date Notes Provider Name and Address Organization Details Recorded Time Anxiety 81926347 Active 023 Trina Manoj null, [place] - [facility] 3 15:19:20 Depressive disorder 19889453 Active 023 Trina [place] null, [place] - [facility] 3 15:19:25 Problem Notes None recorded. Medical Equipment None Reported. Allergies Allergen ID Allergen Name Allergen Category Reaction Reaction Severity Criticality Documentation Date Start Date Code Code System Note Provider Name and Address Organization Details Recorded Time 984554 amoxicill in medicatio n Not available Not [...] Updated DateTime 3 162.56 cm 24.9 kg/m2 80932.8 9 g 100 % 100 % 10 91 /min 20 /min 99.5 [degF] 137/88 mm[Hg] Trina Aranda PA - [facility] 15:20:53 Date Recorded Body height Body mass index (BMI) Body weight Body temperature Oxygen saturation Oxygen saturation in Arterial blood by Pulse oximetry Heart rate Respiratory rate Systolic And Diastolic Provider Name and Address Organization Details Last Updated DateTime 3 162.56 cm 24.9 kg/m2 07993.8 9 g 97.7 [degF] 98 % 98 % 94 /min 18 /min 121/75 mm[Hg] FAIZA JORDAN - [facility] 14:26:43 Social History Question Answer Notes [...] 30 mcg/0.3 mL dose 1 completed Trina [place] null, [place] - [facility] 11/03/2022 15:17:39 Hep A, ped/adol, 2 dose 7 completed Trina [place] null, [place] - [facility] 11/03/2022 15:17:39 Hep A, ped/adol, 2 dose 8 completed Trina [place] null, [place] - [facility] 11/03/2022 15:17:39 meningococcal MCV4P 7 completed Trina [place] null, [place] - [facility] 11/03/2022 15:17:39 Influenza, split virus, quadrivalent, PF 0 completed Trina Manoj null, [place] - [facility] 11/03/2022 15:17:39 Influenza, split virus, quadrivalent, PF 8 completed Trina Manoj null, [place] - [facility] 11/03/2022 15:17:39 Influenza, split virus, quadrivalent, PF 9 completed Trina [place] null, [place] - [facility] 11/03/2022 15:17:39 Influenza, split virus, quadrivalent, PF 6 completed Trina [place] null, [place] - [facility] 11/03/2022 15:17:39 Past Encounters Encounter ID Performer Location Encounter Start Date Encounter Closed Date Diagnosis/Indication Diagnosis SNOMED-CT Code Diagnosis ICD10 Code Diagnosis IMO Codes Diagnosis Note [id number] [place] [address] [address] 11/03/2022 10:29:21 11/03/2022 16:41:23 Acute pharyngitis 513654453 J02.9 Cough 82642773 R05.9 [id number] [place] [address] [address] 01/04/2023 13:12:09 01/04/2023 15:37:03 Contusion of left hand [id number] 5972127 S60.222A No fractureYo ur x-ray will be [...] Bynum Member ID Guarantor Name 11/03/2022 1 [facility] Samreen Mccabe [id number] Samreen Mccabe 11/03/2022 1 [place] [facility] Samreen Mccabe [id number] Samreen Mccabe 01/05/2023 1 [facility] HEALTH NET PLAN (MEDICAID HMO) [place] Samreen Mccabe [id number] Samreen Mccabe 01/05/2023 AMGUARD Samreen Mccabe Notes [...] Sharmila Bellamy MD [address] [place], [address], [place] - [facility] 11/03/2022 16:34:02 3 text/html Wrist / Hand InjuryReported by PatientHPIFor associated symptoms, patient reportsswellingandecchy mosis. For location, patient reportsleft. For severity, patient reportsmoderate. For aggravating factors, patient reportslifting,carrying ,gripping, androm. For previous injury, patient reportsno prior injury to affected body part. For context, (crush). Ronnie Morgan MD [address] [place], [address], [place] - [facility] 01/04/2023 17:26:04 OBGyn Episode No OBEpisode recorded.
--- OUTSIDE RECORDS SUMMARY | 2025-05-07 19:52 | XMS_ITS | Encounter Summary ---
Author Organization [facility] Address [address] [place] [address] Phone Care Team Providers Care Sql Data Architect Name Role Phone Tyler May DO Primary Care Provider [phone] Encounter Details Date Type Department Care Team (Late st Contact Info) Description 11/27/2017 Conversion Encounter [facility] [address] [place] [address] Tyler May DO [address] [place] [address] Social History Tobacco Use Types Packs/Day Years [...] on filedocumented in this encounter Care Teams Sql Data Architect Relationship Specialty Start Date End Date Tyler May DO [address] [place] [address] PCP - General 11/16/17 04/17/24 documented as of this encounter
--- OUTSIDE RECORDS SUMMARY | 2025-05-07 19:52 | XMS_ITS | Clinical Summary ---
Author Organization [facility] Address [address] [place] [address] Phone Care Team Providers Care Display Decorator Name Role Phone Unavailable Primary Care Provider [...] 11:59 AM EDT): Due to f/u with Certified Surgical Technician, reminded her to schedule this. Depression with [...] the last 12 months, has t he [employer], gas, oil, or water [employer] threatened to shut off your services in [...] complete this topic Procedures * Due to [place] [employer] law, this organization might not be sharing sensitive test results. Procedure Name Priority Date/Time Associated Diagnosis Comments CHLAMYDIA AND GONORRHEA, AMPLIFIED Routine 05/15/2020 2:50 PM EST Dysuria from Last 3 Months or Most Recently Relevant to Health Maintenance Results * Due to [place] [employer] law, this organization might not be sharing sensitive test results. * Chlamydia and Gonorrhoea, Amplified (05/15/2020 2:50 PM EST) Chlamydia Trachomatis, DNA Probe NOT DETECTED (NEG) [facility] Comment:Reference range: NOT DETECTED URINE GC AMP PROBE NOT DETECTED (NEG) [facility] Comment: Reference range: NOT DETECTED (NOTE) The analytical performance characteristics of this assay, when used to test SurePath(TM) specimens have been determined by [employer]. The modifications have not been cleared or approved by the FDA. This assay has been validated pursuant to the CLIA regulations and is used for clinical purposes. = For additional information, please refer to https://education.[employer]/faq/DKW716 (This link is being provided for information/ educational purposes only.) = Test Performed by: [facility], [address] [place] [address]. [id number]. Golf Club Head Former: Dee Domingo MD. Testing performed or reported by [facility], a Service of [facility], [address] [place] [address] Red Martinez MD, Advanced Practice Registered Nurse Urine 05/15/2020 2:50 PM EST 05/15/2020 9:19 PM EST us Marcia Quintero MD LAB MICROBIOLOGY - GENERAL ORDER ABDULLAHI Final Result [facility] from Last 3 Months or Most Recently Relevant to Health Maintenance Insurance [facility] NON PCC
--- OUTSIDE RECORDS SUMMARY | 2025-05-07 19:52 | XMS_ITS | Encounter Summary ---
Author Organization [facility] Address [address] [place] [address] Phone Care Team Providers Care Contour Stitcher Name Role Phone Tyler May DO Primary Care Provider [phone] Encounter Details Date Type Department Care Team (Late st Contact Info) Description 08/18/2009 Documentation [facility] Family Medicine [address] [place] [address] Family Medicine, Physician [address] [place], [place] [address] Social History Tobacco Use Types Packs/Day Years [...] on filedocumented in this encounter Care Teams Contour Stitcher Relationship Specialty Start Date End Date Tyler May DO [address] [place] [address] PCP - General 11/16/17 04/17/24 documented as of this encounter
--- OUTSIDE RECORDS SUMMARY | 2025-05-07 19:52 | XMS_ITS | Clinical Summary ---
Author Organization [facility] ity Address [address] [place] [address] Care Team Providers Care Lay Brother Name Role Phone Unavailable Primary Care Provider [...]
== END 2025-05-07 15:33 | disposition home or self-care (01) ==
LOC: HO.XRAY 15:32
PROVIDERS: PCP Physician Assistant; Visit Provider Student in an Organized Health Care Education/Training Program
DX: S99.922A Unspecified injury of left foot, initial encounter (principal)
CPT/HCPCS: 73630

== ENCOUNTER → 2025-05-07 15:37 | Outpatient (BNV) | payer OTHER, SELFPAY | PROVIDERS: PCP Physician Assistant; Visit Provider Radiology Diagnostic Radiology | DX: M20.12 Hallux valgus (acquired), left foot (principal) | CPT/HCPCS: 73630 ==